=== PATIENT | female | born 1960 | race Caucasian/White ===

== ENCOUNTER 2018-06-22 08:36 | Outpatient (REF) | payer BC, SELFPAY ==
[2018-06-22 13:42] LABS: Anion Gap 9.9 mmol/L (3-11); BUN 18 mg/dL (7-18); CO2 29.1 mmol/L (21.0-32.0); CREATININE 0.59 mg/dL (0.55-1.02); Calcium 8.9 mg/dL (8.5-10.1); Chloride 102 mmol/L (98-107); Cholesterol 225 mg/dL (50-200); Glucose 92 mg/dL (70-100); HDL Cholesterol 53 mg/dL (40-60); LDL CHOLESTEROL 143 mg/dL (<100); Potassium 3.4 mmol/L (3.5-5.1); Sodium 141 mmol/L (136-145); Triglyceride 201 mg/dL (30-150)
== END 2018-06-22 08:56 ==
LOC: NCHCN 08:36
PROVIDERS: PCP Nurse Practitioner; Visit Provider Nurse Practitioner
DX: Z00.00 Encounter for general adult medical examination without abnormal findings (principal); I10 Essential (primary) hypertension; Z13.89 Encounter for screening for other disorder
CPT/HCPCS: 80048; 80061; 83721

== ENCOUNTER 2018-11-16 17:25 | Outpatient (REF) | payer BC, SELFPAY ==
[2018-11-16 21:35] LABS: Anion Gap 8.9 mmol/L (3-11); BUN 21 mg/dL (7-18); CO2 29.1 mmol/L (21.0-32.0); Calcium 8.8 mg/dL (8.5-10.1); Chloride 102 mmol/L (98-107); Glucose 93 mg/dL (70-100); Potassium 3.5 mmol/L (3.5-5.1); Sodium 140 mmol/L (136-145)
== END 2018-11-16 17:45 ==
LOC: NCHCN 17:25
PROVIDERS: PCP Nurse Practitioner; Visit Provider Nurse Practitioner
DX: E87.6 Hypokalemia (principal); I10 Essential (primary) hypertension
CPT/HCPCS: 80048

== ENCOUNTER 2019-02-01 13:11 | Day surgery (SDC) | payer BC, SELFPAY ==
--- NOTE | 2019-02-01 07:07 | COLE_ITS ---
Date of service: 02/01/19 Time of Service: 15:55 Colonoscopy Report Date of procedure: 02/01/19 Pre-op diagnosis general: Colon Cancer screening Post-op diagnosis procedure note: same Procedure: Colonoscopy Surgeon: Dasha Alcazar Anesthesia proc note operative: other (General/ ASA 2/Cameron Winn, PRINCE) Estimated blood loss (mL): 0 Pathology: none sent Complications: None Disposition: no change Indications: Mrs. Olson is a pleasant 58 year old female seen in the office for a screening colonoscopy. Risks, benefits and complications have been reviewed. Complications include but are not limited to bleeding, pain, per foration, missed small lesion/polyp, sore throat, aspiration and adverse reaction to the medications. Questions were entertained and answered to their satisfaction and they wished to proceed. No guarantees were given or implied. Prep: Miralax/Dulcolax Procedure Start Time: 15:55 Procedure End Time: 16:19 Retraction Time: 15 Findings: Normal colon Procedure Description: After informed consent was obtained the patient was taken to the procedure room and placed in a left decubitous position. Monitors were applied and a time out was done. The patients name, date of , procedure, allergies to medications and metal in their body was reviewed. The patient was then sedated. Once sedated and comfortable a rectal exam was done. External exam was normal. Internal exam revealed a normal sphincter tone and no palpable masses. The scope was then introduced and retro-flexed. No internal hemorrhoids were identified. The scope was then advanced to the cecum without difficulty. The TI and appendiceal orifice were identified. The prep was adequate. The scope was then slowly retracted over 15 minutes back into the rectum. There were no polyps, no diverticula. The scope was removed and the patient was woken up and taken back to Same day surgery in stable condition. The patient tolerated the procedure well and there were no immediate complications. Follow up: The patient should follow up in 10 years unless they develop changes in bowel habits or other new gastrointestinal complaints.
--- NOTE | 2019-02-01 07:07 | W.PM.DSUDISC ---
Discharge Plan Disposition Patient Disposition: HOME Condition: Good Discharge Details Reason For Visit: Colon Cancer Screening Attending Provider: Dasha Alcazar Primary Care Provider: Zonia Angeles Home Meds and New Rx's Prescriptions: Continued lisinopril 10 mg tablet 10 mg PO DAILY RF: 0 Discontinued polyethylene glycol 3350 17 gram/dose powder 238 g PO ONCE Qty: 238 RF: 0 bisacodyl [Dulcolax (bisacodyl)] 5 mg tablet,delayed release (DR/EC) 5 mg PO ONCE Qty: 4 RF: 0 Discharge Instructions Instructions: Colonoscopy (DC) Additional Instructions: Findings: normal Follow up: 10 years Please call if you develop: fevers >101.5 Nausea or Vomiting Abdominal pain that is not transient DAY SURGERY UNIT POST COLONOSCOPY INSTRUCTIONS 1. Because there will be medication in your system for the next 24 hours, you may feel a little sleepy. Your coordination will be affected. Therefore: a. Do not drive or operate dangerous equipment for 24 hours. b. Do not drink alcohol beverages for 24 hours (not even beer). c. Plan to go home and rest for the day. 2. Generally there are no restrictions on your activity after a day or so has gone by, but you may feel a bit fatigued for a few days. 3 After you arrive home you may have a light meal and return to a normal diet as you can tolerate it without feeling sick to your stomach. 4. After surgery, you may feel pain or discomfort. This should be only transient, but if it persists please contact your doctor. 5. If there are any questions regarding the findings of your procedure, please feel free to contact your doctor. 6. If you are unable to contact your doctor with a problem, contact the hospital at [phone]. 7. Continue all your regular medications unless directed otherwise. I understand the above instructions and have no questions. Signature of Patient or Responsible Adult Escort Date/Time Name of Responsible Adult Escort Signature of Nurse Date/Time Activity:: Activity as Tolerated Diet:: As Tolerated Discharge Orders Discharge Orders: Discharge Order (Routine); Ordered 02/01/19 Ordered By: Dasha Alcazar DS: Diagnosis Discharge Diagnosis (1) S/P colonoscopy: Status: Acute
[2019-02-01 13:34] VITALS: BP 176/99; PULSE 100; RESP 16; TEMP 37; O2SAT 99
[2019-02-01] MEDS: Lactated Ringers 1,000 ML 80 ML IV (14:00)
[2019-02-01 16:45] VITALS: BP 119/69; PULSE 76; RESP 16; TEMP 36; O2SAT 97
== END 2019-02-01 17:25 | disposition home or self-care (01) ==
LOC: SUR 13:12
PROVIDERS: PCP Nurse Practitioner; Visit Provider Surgery
PROC: 0DJD8ZZ Inspection of Lower Intestinal Tract, Via Natural or Artificial Opening Endoscopic (ICD-10-PCS; CPT 45378; principal; 2019-02-01 14:30)
DX: Z12.11 Encounter for screening for malignant neoplasm of colon (principal); I10 Essential (primary) hypertension
CPT/HCPCS: 45378

== ENCOUNTER 2019-05-11 15:33 | Outpatient (REF) | payer BC, SELFPAY | END 2019-05-11 15:53 | LOC: NCHCN 15:33 | PROVIDERS: PCP Internal Medicine; Visit Provider Nurse Practitioner Family | DX: R35.0 Frequency of micturition (principal); R21 Rash and other nonspecific skin eruption | CPT/HCPCS: 87077; 87086; 87186 ==

== ENCOUNTER 2020-02-22 20:11 | Outpatient (REF) | payer BC, SELFPAY ==
--- NOTE | 2020-02-22 16:30 | PAPFT_PTH ---
PATIENT: Nhi Olson LOC: [facility]#:[id number] AGE/SX: 59/F ROOM: RE02/22/[address]: Debbie White : 1960 BED: DIS: 02/22/2020 SPEC #: [id number] RECD: 02/23/20 12:47 STATUS: ELLEN REQ #: [id number] LUANN: 02/22/20 16:[address]: Debbie White DEPT: [facility] Cytology RECD BY: Analy Witt ENTERED: 02/23/20 12:47 SP TYPE: PAPFT OTHR DR: Robert Pritchard Tissues: 1 - CX/ENDOCX FOR PAP SMEARS Procedures: PAP THIN PREP/[facility] Screening HPV DNA PROBE Comments: [id number]
[2020-02-22 21:38] LABS: ALT 21 U/L (14-59); AST 18 U/L (15-37); Albumin 4.5 g/dL (3.4-5.0); Alkaline Phosphatase 71 U/L (46-116); Anion Gap 8.9 mmol/L (3-11); BUN 20 mg/dL (7-18); Bilirubin, Total 0.3 mg/dL (0.2-1.0); CO2 29.1 mmol/L (21.0-32.0); CREATININE 0.72 mg/dL (0.55-1.02); Chloride 102 mmol/L (98-107); Glucose 94 mg/dL (74-106); Potassium 3.6 mmol/L (3.5-5.1); Sodium 140 mmol/L (136-145); Total Protein 7.4 g/dL (6.4-8.2)
[2020-02-22 21:54] LABS: Calculated LDL 141 mg/dL (<100); Cholesterol 244 mg/dL (<200); HDL Cholesterol 44 mg/dL (40-60); Triglyceride 296 mg/dL (<150)
[2020-02-24 10:03] LABS: HIV-1/2 Ag & Ab Screen Negative (Negative)
== END 2020-02-22 20:31 ==
LOC: NCHCN 20:11
PROVIDERS: PCP Internal Medicine; Visit Provider Nurse Practitioner Family
DX: Z00.00 Encounter for general adult medical examination without abnormal findings (principal); I10 Essential (primary) hypertension; E78.5 Hyperlipidemia, unspecified; R31.9 Hematuria, unspecified; F41.9 Anxiety disorder, unspecified; K30 Functional dyspepsia; Z11.4 Encounter for screening for human immunodeficiency virus [HIV]; Z12.4 Encounter for screening for malignant neoplasm of cervix; Z01.419 Encounter for gynecological examination (general) (routine) without abnormal findings; Z11.51 Encounter for screening for human papillomavirus (HPV)
CPT/HCPCS: 80053; 80061; 87389; 88142; 87624

== ENCOUNTER 2020-05-05 16:34 | Outpatient (REF) | payer BC, SELFPAY ==
[2020-05-05 21:45] LABS: ALT 21 U/L (14-59); AST 16 U/L (15-37); Alkaline Phosphatase 62 U/L (46-116); Anion Gap 9.3 mmol/L (3-11); BUN 22 mg/dL (7-18); Bilirubin, Total 0.4 mg/dL (0.2-1.0); CO2 26.7 mmol/L (21.0-32.0); CREATININE 0.74 mg/dL (0.55-1.02); Calcium 8.9 mg/dL (8.5-10.1); Chloride 103 mmol/L (98-107); Glucose 92 mg/dL (74-106); Potassium 3.5 mmol/L (3.5-5.1); Sodium 139 mmol/L (136-145); Total Protein 6.7 g/dL (6.4-8.2)
[2020-05-05 22:12] LABS: Calculated LDL 62 mg/dL (<100); Cholesterol 150 mg/dL (<200); HDL Cholesterol 56 mg/dL (40-60); Triglyceride 161 mg/dL (<150)
== END 2020-05-05 16:54 ==
LOC: NCHCN 16:34
PROVIDERS: PCP Internal Medicine; Visit Provider Nurse Practitioner Family
DX: Z00.00 Encounter for general adult medical examination without abnormal findings (principal); I10 Essential (primary) hypertension; E78.5 Hyperlipidemia, unspecified
CPT/HCPCS: 80053; 80061

== ENCOUNTER 2020-06-06 15:05 | Outpatient (REF) | payer BC, SELFPAY ==
[2020-06-10 04:29] LABS: Patient Race White; SARS-CoV-2 RNA Undetected (Undetected); SARS-CoV-2 Specimen Source Nasal
== END 2020-06-06 15:25 ==
LOC: NCHCN 15:05
PROVIDERS: PCP Internal Medicine; Visit Provider Nurse Practitioner Family
DX: Z20.828 Contact with and (suspected) exposure to other viral communicable diseases (principal)
CPT/HCPCS: U0003

== ENCOUNTER 2020-08-28 20:32 | Outpatient (REF) | payer BC, SELFPAY | END 2020-08-28 20:52 | LOC: NCHCN 20:32 | PROVIDERS: PCP Internal Medicine; Visit Provider Family Medicine | DX: R39.15 Urgency of urination (principal) | CPT/HCPCS: 87077; 87086; 87186 ==

== ENCOUNTER 2020-11-28 01:31 | Outpatient (CLI) | payer BC, SELFPAY ==
--- NOTE | 2020-11-28 | DI.RAD_ITS ---
EXAM: XR HIP PELVIS ADULT BL CLINICAL HISTORY: BILAT HIP PAIN,M25.551 TECHNIQUE: COMPARISON: No exams were available for comparison FINDINGS: Three views were obtained. There is mild narrowing of the cartilaginous joint spaces of both hips. There are moderate marginal osteophytes of the acetabula and femoral heads bilaterally. Contour of f emoral neck bilaterally raises the possibility of femoroacetabular impingement. No other bony or soft tissue abnormality seen. IMPRESSION: Bilateral hip degenerative changes, moderate, question of femoroacetabular impingement bilaterally. RADIATION DOSE DELIVERED: Total DLP
== END 2020-11-28 01:51 ==
PROVIDERS: PCP Internal Medicine; Visit Provider Nurse Practitioner Family
DX: M25.551 Pain in right hip (principal); M25.552 Pain in left hip; M16.0 Bilateral primary osteoarthritis of hip
CPT/HCPCS: 73521

== ENCOUNTER 2020-12-22 16:05 | Outpatient (REF) | payer BC, SELFPAY | END 2020-12-22 16:06 | disposition home or self-care (01) | LOC: NCHCN 16:05 | PROVIDERS: PCP Internal Medicine; Visit Provider Nurse Practitioner Family | DX: R39.15 Urgency of urination (principal) | CPT/HCPCS: 87077; 87086; 87186 ==

== ENCOUNTER 2020-12-29 18:19 | Outpatient (REF) | payer BC, SELFPAY | END 2020-12-29 18:20 | disposition home or self-care (01) | LOC: NCHCN 18:19 | PROVIDERS: PCP Internal Medicine; Visit Provider Physician Assistant Medical | DX: R30.0 Dysuria (principal) | CPT/HCPCS: 87077; 87086; 87186 ==

== ENCOUNTER 2021-01-10 10:13 | Emergency (ER) | payer BC, SELFPAY ==
[2021-01-10 10:18] VITALS: BP 174/100; PULSE 100; RESP 18; TEMP 37.3; O2SAT 98
--- NOTE | 2021-01-10 10:29 | ED.GENADUL_ITS ---
Discharge Plan Disposition Patient Disposition: HOME Condition: Stable Discharge Details Clinical Impression: Epistaxis Primary Care Provider: Robert Pritchard ED Provider: Stephen Yeung Home Meds and New Rx's Prescriptions: Continued lisinopril 10 mg tablet 10 mg PO DAILY RF: 0 Discharge Instructions Instructions: Nosebleed (ED) Additional Instructions: You can use the nasal spray up to three times a day and do not use it more than 3 days if worsening bleeding or you are unable to get the bleeding to stop with 15 minutes of pressure return to the emergency department Medical Decision Making 60 yo female with hx of htn on lisinopril and not on any blood thinners comes in with chief complaint of right sided nose bleeds. She states she gets frequent right sided nosebleeds but normally at home. 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 She was able to stop it with some packing at the school but then this was pulled and removed a clot and it continued to bleed. She arrives with trickling of blood out the right nare, no visible nasal polyps, anterior nare is hyperemic, suspect anterior nose bleed, will have her hold pressure with nasal clamp and reassess. pt still had oozing after afrin and pressure, discussed rhino rocket and she initially agreed to have this done but when I brought equipment in she would like to try afrin and pressure again, this was done and nasal clamp reapplied, will reevaluate. nasal clamp removed and no recurrent bleeding, she does not want to have a rhino rocket at present. will reevaluate after she has some time with no clamp on the nose. patient has no recurrent bleeding, remains stable. Given no recurrent bleeding will d/c with afrin and return precautions given Differential Diagnosis Differential Diagnosis: anterior vs posterior epistaxis HPI General Mode of arrival: ambulatory . Date/Time Provider Initiated Documentation: 01/10/21 10:14 . Limitations to Documentation: no limitations . Information obtained by: patient . History of Present Illness 60 year old F presents to the emergency department with the chief complaint of nosebleed, described as moderate, Patient reports no radiation. Patient started experiencing this hour(s) (3) and it has been constant. No relieving factors improve symptom(s), No exacerbating factors reported . Patient notes no other symptoms.. Related Data Home Medications Medication Instructions Recorded Confirmed lisinopril 10 mg tablet 10 mg PO DAILY 01/18/19 01/10/21 Allergies Allergy/AdvReac Type Severity Reaction Status Date / Time Sulfa (Sulfonamide Allergy Severe Verified 02/01/19 13:28 Antibiotics) acetaminophen [From Vicodin] Allergy Unknown Verified 01/28/19 16:10 hydrocodone [From Vicodin] Allergy Unknown Verified 02/01/19 13:27 General Stated Complaint: Epistaxis JABIER: 3 Review of Systems All systems reviewed & are unremarkable except as noted in HPI and below Constitutional Constitutional: Denies chills, Denies fever(s) and Denies weakness Cardiovascular Cardiovascular: Denies chest pain and Denies dyspnea Respiratory Respiratory: Denies cough and Denies dyspnea Gastrointestinal Gastrointestinal: Denies abdominal pain, Denies nausea and Denies vomiting Musculoskeletal Musculoskeletal: Denies joint swelling Neurologic Neurologic: Denies weakness [facility] Medical History (Updated 01/10/21 @ 11:49 by Stephen Yeung MD) Cyst mid back History of kidney stones HTN (hypertension) Hx of fracture of wrist Skin lesion left religious Surgical History (Updated 02/01/19 @ 13:31 by Janett Johnson) History of lithotripsy Hx of cystoscopy Hx of tonsillectomy S/P colonoscopy (~02/01/19) Social History (Updated 01/22/19 @ 10:33 by DESIRAE Blood) Smoking/Tobacco Use Status: Never Smoking risk assessment performed?: Yes Alcohol Intake: current Alcohol Intake frequency: a few times a month Alcohol type: beer, hard liquor and other Substance use type: does not use Details: alcohol: 01/21/2019 Do you feel safe at home: Yes Do you feel safe in your relationship?: Yes Exam Const General: no acute distress Orientation: alert [facility] Head: normal to inspection Ears: external ears normal Mouth: moist mucous membranes Eyes General: appearance normal, both eyes and all related structures Neck Neck: normal visual inspection Resp Effort & Inspection: normal respiratory effort and able to speak in complete sentences Cardio Rate: regular rate Skin General skin exam: no rashes or lesions noted Neuro General: patient alert and patient oriented x3 Extrem General: normal to inspection Psych Mental Status: mental status grossly normal Course Vital Signs Vital signs: Vital Signs Temperature 37.3 C 01/10/21 10:18 Pulse 100 H 01/10/21 10:18 Respiratory Rate 18 01/10/21 10:18 Blood Pressure 174/100 H 01/10/21 10:18 Pulse Oximetry 98 01/10/21 10:18 Temperature 37.3 C 01/10/21 10:18 Temperature Source Temporal Artery Scan 01/10/21 10:18 Pulse 100 H 01/10/21 10:18 Respiratory Rate 18 01/10/21 10:18 Respiratory Effort Non-Labored 01/10/21 10:21 Blood Pressure 174/100 H 01/10/21 10:18 Blood Pressure Position Sitting 01/10/21 10:18 Pulse Oximetry 98 01/10/21 10:18 Oxygen Delivery Method Room Air 01/10/21 10:18 Oxygen Flow Rate 0 01/10/21 10:18 Pain Level 0 01/10/21 10:18
[2021-01-10] MEDS: Oxymetazolone 0.05% SPRAY 15 ML BTL NS (10:31)
[2021-01-10 11:53] VITALS: BP 163/88
[2021-01-10 13:07] VITALS: BP 163/88; PULSE 100; RESP 18; TEMP 37.3; O2SAT 98
== END 2021-01-10 12:24 | disposition home or self-care (01) ==
PROVIDERS: Emergency Provider Emergency Medicine; PCP Internal Medicine
DX: R04.0 Epistaxis (principal)
CPT/HCPCS: 99282

== ENCOUNTER 2021-01-26 12:14 | Outpatient (REF) | payer BC, SELFPAY | END 2021-01-26 12:15 | disposition home or self-care (01) | LOC: NCHCN 12:14 | PROVIDERS: PCP Internal Medicine; Visit Provider Family Medicine | DX: N39.0 Urinary tract infection, site not specified (principal) | CPT/HCPCS: 87077; 87086; 87186 ==

== ENCOUNTER 2021-03-29 14:57 | Outpatient (REF) | payer BC, SELFPAY ==
[2021-03-29 15:58] LABS: HCT 37.6 % (36.0-46.0); RDW 11.7 % (11.7-14.6)
[2021-03-29 16:00] LABS: HGB 12.6 g/dL (11.2-15.7); MCH 29.9 pg (27.0-33.0); MCHC 33.5 % (32.0-36.0); MCV 89.3 fL (80-95); MPV 12.5 fL (8.0-11.0); RBC 4.21 10^6/uL (3.93-5.22); RDW-SD 37.2 fL
[2021-03-29 16:06] LABS: Anion Gap 10.5 mmol/L (3-11); BUN 21 mg/dL (7-18); CO2 28.5 mmol/L (21.0-32.0); CREATININE 0.7 mg/dL (0.55-1.02); Calcium 8.6 mg/dL (8.5-10.1); Calculated LDL 126 mg/dL (<100); Chloride 106 mmol/L (98-107); Cholesterol 220 mg/dL (<200); Glucose 110 mg/dL (74-106); HDL Cholesterol 46 mg/dL (40-60); Potassium 3.8 mmol/L (3.5-5.1); Sodium 145 mmol/L (136-145); Triglyceride 242 mg/dL (<150)
[2021-03-29 16:51] LABS: Bilirubin Negative (Negative); Blood Large (Negative); Clarity Clear (Clear); Glucose Negative (Negative); Ketones Negative (Negative); Leukocyte Esterase Trace (Negative); Nitrite Negative (Negative); Urobilinogen 0.2 EU/dL (Up TO 0.2)
[2021-03-29 17:28] LABS: Platelet Count 38 10^3/uL (130-400)
[2021-03-29 17:32] LABS: Bacteria Negative HPF (Negative); C & S Indicated? Yes; Casts Negative LPF (Negative); Crystals Moderate Amorphous HPF (Negative); Epithelial Cells Negative HPF (Negative); Mucus Negative (Negative); Other Cells Negative (Negative); WBC Negative HPF (0-5)
== END 2021-03-29 14:58 | disposition home or self-care (01) ==
LOC: NCHCN 14:57
PROVIDERS: PCP Internal Medicine; Visit Provider Nurse Practitioner Family
DX: I10 Essential (primary) hypertension (principal); R23.2 Flushing; R31.9 Hematuria, unspecified; E78.5 Hyperlipidemia, unspecified
CPT/HCPCS: 80048; 80061; 85027; 81003; 81015; 87086

== ENCOUNTER 2021-05-04 20:40 | Outpatient (REF) | payer BC, SELFPAY ==
[2021-05-06 15:39] LABS: COVID-19 RT-PCR UVMMC Result Negative (Negative)
== END 2021-05-04 20:41 | disposition home or self-care (01) ==
LOC: LBN 20:40
PROVIDERS: PCP Internal Medicine; Visit Provider Physician Assistant Medical
DX: Z20.822 Contact with and (suspected) exposure to COVID-19 (principal); J06.9 Acute upper respiratory infection, unspecified
CPT/HCPCS: U0003

== ENCOUNTER 2021-06-13 00:41 | Outpatient (CLI) | payer BC, SELFPAY ==
--- NOTE | 2021-06-13 17:30 | DI.DEXA_ITS ---
Exam(s) XR DEXA BONE DENSITY W/WO SMITHA EXAM: XR DEXA BONE DENSITY W/WO SMITHA CLINICAL HISTORY: DISORDER OF BONE DENSITY AND STRUCTURE M85.88 TECHNIQUE: Routine DEXA evaluation of the lumbar spine, hip, or forearm. COMPARISON: CR XR HIP PELVIS ADULT BL from 11/28/2020 FINDINGS: Performed on a Hologic unit. Lateral image: No compression fracture evident. Lumbar Spine total T-score: -1.9 Hip total T-score:-2.2 Independent reading at the level of the femoral neck yields at T-score of -1.5. Forearm total T-score: -2.9 IMPRESSION: Bone mineral density measures in the osteopenia-osteoporosis range. Fracture risk is moderate-high. Note: Any spine fracture indicates 5x risk for subsequent spine fracture and 2x risk for subsequent h ip fracture. World Health Organization criteria for BMD interpretation classify patients: Normal...... T- Score at or above -1.0 Osteopenic... T- Score between -1.0 and -2.5 Osteoporosis... T-Score at or below -2.5
== END 2021-06-13 01:01 ==
PROVIDERS: PCP Internal Medicine; Visit Provider Nurse Practitioner Family
DX: M85.89 Other specified disorders of bone density and structure, multiple sites (principal); M81.0 Age-related osteoporosis without current pathological fracture
CPT/HCPCS: 77080

== ENCOUNTER 2021-07-12 20:03 | Outpatient (REF) | payer BC, SELFPAY ==
[2021-07-12 22:35] LABS: HCT 36.7 % (36.0-46.0); HGB 12.6 g/dL (11.2-15.7); MCH 29.4 pg (27.0-33.0); MCHC 34.3 % (32.0-36.0); MCV 85.7 fL (80-95); RBC 4.28 10^6/uL (3.93-5.22); RDW 11.7 % (11.7-14.6); RDW-SD 36.2 fL; WBC 5.77 10^3/uL (4.4-10.8)
[2021-07-12 23:35] LABS: Platelet Count 40 10^3/uL (130-400)
== END 2021-07-12 20:04 | disposition home or self-care (01) ==
LOC: NCHCN 20:03
PROVIDERS: PCP Internal Medicine; Visit Provider Nurse Practitioner Family
DX: D69.6 Thrombocytopenia, unspecified (principal)
CPT/HCPCS: 85027

== ENCOUNTER 2021-08-08 18:22 | Outpatient (REF) | payer BC, SELFPAY | END 2021-08-08 18:23 | disposition home or self-care (01) | LOC: NCHCN 18:22 | PROVIDERS: PCP Internal Medicine; Visit Provider Family Medicine | DX: N39.0 Urinary tract infection, site not specified (principal) | CPT/HCPCS: 87077; 87086; 87186 ==

== ENCOUNTER 2021-09-20 02:37 | Outpatient (CLI) | payer BC, SELFPAY | END 2021-09-20 02:38 | disposition home or self-care (01) | LOC: LBO 02:38 | PROVIDERS: PCP Internal Medicine; Visit Provider Internal Medicine Hematology & Oncology ==

== ENCOUNTER 2022-06-07 15:03 | Outpatient (REF) | payer BC, SELFPAY ==
[2022-06-07 15:45] LABS: HCT 39.1 % (36.0-46.0); HGB 13.3 g/dL (11.2-15.7); MCV 88 fL (80-95); MPV 12.4 fL (8.0-11.0); RBC 4.44 10^6/uL (3.93-5.22); RDW 11.6 % (11.7-14.6); RDW-SD 36.9 fL; WBC 5.82 10^3/uL (4.4-10.8)
[2022-06-07 16:10] LABS: Platelet Count 73 10^3/uL (130-400)
== END 2022-06-07 15:04 | disposition home or self-care (01) ==
LOC: NCHCN 15:03
PROVIDERS: PCP Internal Medicine; Visit Provider Nurse Practitioner Family
DX: D69.6 Thrombocytopenia, unspecified (principal)
CPT/HCPCS: 85027

== ENCOUNTER 2022-09-03 16:42 | Outpatient (REF) | payer BC, SELFPAY ==
[2022-09-03 21:13] LABS: HCT 39.3 % (36.0-46.0); HGB 13.1 g/dL (11.2-15.7); MCHC 33.3 % (32.0-36.0); MCV 87 fL (80-95); MPV 11.1 fL (8.0-11.0); Platelet Count 220 10^3/uL (130-400); RBC 4.51 10^6/uL (3.93-5.22); RDW 13.3 % (11.7-14.6)
== END 2022-09-03 16:43 | disposition home or self-care (01) ==
LOC: NCHCN 16:42
PROVIDERS: PCP Internal Medicine; Visit Provider Nurse Practitioner Family
DX: D69.3 Immune thrombocytopenic purpura (principal)
CPT/HCPCS: 85027

== ENCOUNTER 2022-10-08 12:38 | Outpatient (REF) | payer BC, SELFPAY | END 2022-10-08 12:39 | disposition home or self-care (01) | LOC: NCHCN 12:38 | PROVIDERS: PCP Internal Medicine; Visit Provider Nurse Practitioner Family | DX: N39.0 Urinary tract infection, site not specified (principal) | CPT/HCPCS: 87086 ==

== ENCOUNTER 2023-01-23 18:23 | Outpatient (REF) | payer BC, SELFPAY | END 2023-01-23 18:24 | disposition home or self-care (01) | LOC: NCHCN 18:23 | PROVIDERS: PCP Internal Medicine; Visit Provider Family Medicine | DX: N89.8 Other specified noninflammatory disorders of vagina (principal) | CPT/HCPCS: 87480; 87510; 87660 ==

== ENCOUNTER 2023-02-06 13:52 | Outpatient (REF) | payer BC, SELFPAY ==
[2023-02-06 21:18] LABS: HCT 37.9 % (36.0-46.0); HGB 13.3 g/dL (11.2-15.7); MCH 30.8 pg (27.0-33.0); MCHC 35.1 % (32.0-36.0); MCV 88 fL (80-95); MPV 12.7 fL (8.0-11.0); Platelet Count 72 10^3/uL (130-400); RBC 4.32 10^6/uL (3.93-5.22); RDW 11.5 % (11.7-14.6); RDW-SD 37.2 fL; WBC 5.01 10^3/uL (4.4-10.8)
[2023-02-06 22:22] LABS: ALT 19 U/L (14-59); AST 19 U/L (15-37); Albumin 4.3 g/dL (3.4-5.0); Alkaline Phosphatase 73 U/L (46-116); Anion Gap 6.2 mmol/L (3-11); BUN 16 mg/dL (7-18); Bilirubin, Total 0.4 mg/dL (0.2-1.0); CO2 31.8 mmol/L (21.0-32.0); CREATININE 0.6 mg/dL (0.55-1.02); Calcium 9.1 mg/dL (8.5-10.1); Calculated LDL 137 mg/dL (<100); Chloride 105 mmol/L (98-107); Cholesterol 239 mg/dL (<200); Estimated GFR 100.17 (mL/min/1.73m2); Glucose 87 mg/dL (74-106); HDL Cholesterol 52 mg/dL (40-60); Potassium 4.1 mmol/L (3.5-5.1); Sodium 143 mmol/L (136-145); Total Protein 7.3 g/dL (6.4-8.2); Triglyceride 253 mg/dL (<150)
[2023-02-08 09:19] LABS: HIV-1/2 Ag & Ab Screen Negative (Negative)
[2023-02-10 11:18] LABS: Hepatitis C Ab w Rflx HCV PCR Negative (Negative)
== END 2023-02-06 13:53 | disposition home or self-care (01) ==
LOC: NCHCN 13:52
PROVIDERS: PCP Internal Medicine; Visit Provider Nurse Practitioner Family
DX: Z00.00 Encounter for general adult medical examination without abnormal findings (principal)
CPT/HCPCS: 80053; 80061; 85027; 86803; 87389

== ENCOUNTER 2023-05-27 13:13 | Outpatient (REF) | payer BC, SELFPAY | END 2023-05-27 13:14 | disposition home or self-care (01) | LOC: LBN 13:13 | PROVIDERS: PCP Internal Medicine; Visit Provider Nurse Practitioner Family | DX: N30.01 Acute cystitis with hematuria (principal); B95.7 Other staphylococcus as the cause of diseases classified elsewhere | CPT/HCPCS: 87077; 87086; 87186 ==

== ENCOUNTER 2023-08-21 19:43 | Outpatient (REF) | payer BC, SELFPAY ==
[2023-08-21 22:03] LABS: Bacteria Few HPF (Negative); Crystals Few Amorphous HPF (Negative); Epithelial Cells Few HPF (Negative); Mucus Trace (Negative); Other Cells Rare Renal (Negative); RBC 0-2 HPF (0-2)
[2023-08-21 22:04] LABS: C & S Indicated? C&S Done As Ordered; Casts Negative LPF (Negative)
== END 2023-08-21 19:44 | disposition home or self-care (01) ==
LOC: LBN 19:43
PROVIDERS: PCP Internal Medicine; Visit Provider Physician Assistant Medical
DX: R30.0 Dysuria (principal); R82.998 Other abnormal findings in urine
CPT/HCPCS: 81015; 87086

== ENCOUNTER → 2023-09-25 03:16 | Outpatient (CLI) | payer BC, SELFPAY ==
--- NOTE | 2023-09-25 | DI.US_ITS ---
Exam(s) US CAROTID EXAM: US CAROTID CLINICAL HISTORY: Z82.49 FA HX ischemic heart disease,other disease of circulatory system. TECHNIQUE: Ultrasound carotids performed using grayscale, color-flow, and spectral Doppler imaging. COMPARISON: No exams were available for comparison FINDINGS: RIGHT CAROTID ARTERY: Plaque: None Velocity elevation: None. LEFT CAROTID ARTERY: Plaque: Minimal. Velocity elevation: None. VERTEBRAL ARTERIES: Antegrade flow. Measurements: R Bulb: 67.9cm/s PS / 20.8cm/s ED R CCA: 75cm/s PS / 22.5cm/s ED R ECA: 85.1cm/s PS / 7.5cm/s ED R ICA Prox: 90.8cm/s PS / 22cm/s ED R ICA Mid: 98.7cm/s PS / 36cm/s ED R ICA Distal: 111.5cm/s PS /31.2cm/s ED, tortuous distally. R Vert: 81.5cm/s PS / 24.7cm/s ED R SVR: 1.5 R DVR: 1.4 L Bulb: 58.7cm/s PS / 18.9cm/s ED L CCA: 76.6cm/s PS / 24cm/s ED L ECA: 92.6cm/s PS / 14.2cm/s ED L ICA Prox: 75cm/s PS / 26.9cm/s ED L ICA Mid: 94.7cm/s PS / 30.2cm/s ED L ICA Distal: 79cm/s PS / 28.8cm/s ED L Vert: 52.1cm/s PS / 12.3cm/s ED L SVR: 1.2 L DVR: 1.3 IMPRESSION: No evidence for hemodynamically significant carotid stenosis. Minimal plaque. Criteria for Carotid Stenosis: Normal: ICA PSV <125 cm/s no plaque or intimal thickening is visible. <50% stenosis: ICA PSV <125 cm/s and plaque or intimal thickening is visible. 50-69% stenosis: ICA PSV is 125-250 cm/s and plaque is visible. >70% stenosis to near occlusion: ICA PSV >250 cm/s with visible plaque and luminal narrowing. DATA REPOSITORY:
--- NOTE | 2023-09-25 | DI.RAD_ITS ---
Exam(s) XR HIP PELVIS ADULT BL EXAM: XR HIP PELVIS ADULT BL CLINICAL HISTORY: PAIN LEFT HIP M25.552 RIGHT SIDE FOR COMPARISON. TECHNIQUE: 2D digital imaging was performed. Three views. COMPARISON: CR XR HIP PELVIS ADULT BL from 11/28/2020 FINDINGS: BONES: No acute fracture is present. No bony destructive lesion is seen. JOINTS: No dislocation present. moderate to severe bilateral hip joint space narrowing with progress ion when compared with previous exam. Prominent spurring at the margins of the femoral heads. Degen erative changes of both superior acetabula. Degenerative changes at the right SI joint. No changes lower lumbar spine peer SOFT TISSUE: Normal. IMPRESSION: Moderate to severe degenerative changes of both hips. DATA REPOSITORY: RADIATION DOSE DELIVERED:
== END ==
PROVIDERS: PCP Internal Medicine; Visit Provider Nurse Practitioner Family
DX: M16.0 Bilateral primary osteoarthritis of hip (principal)
CPT/HCPCS: 73521; 93880

== ENCOUNTER 2023-10-16 17:10 | Emergency (ER) | payer BC, SELFPAY ==
[2023-10-16 17:13] VITALS: BP 211/93; PULSE 88; RESP 20; TEMP 36.8; O2SAT 99
--- NOTE | 2023-10-16 17:17 | W.ED.GENAD ---
Discharge Plan Disposition Patient Disposition: Home Condition: Stable Discharge Details Clinical Impression: Left ureteral stone Primary Care Provider: Brenda Naqvi ED Provider: Fransisco Timmons Home Meds and New Rx's Prescriptions: Continued lisinopril 10 mg tablet 40 mg PO DAILY propranolol 40 mg tablet 40 mg PO DAILY PRN (Reason: anxiety) rosuvastatin 5 mg tablet 5 mg PO DAILY multivitamin [Daily Multi-Vitamin] Tablet 1 tab PO DAILY tumeric Calcium 600 with Vitamin D3 600 mg-10 mcg (400 unit) tablet,chewable 1 tab PO DAILY Discharge Instructions Instructions: Ketorolac (By mouth), Ondansetron (By mouth), Tamsulosin (By mouth), Ureteral Stones (ED) Additional Instructions: You were seen in the emergency department for your left flank pain, there is a stone in the distal ureter just prior to entering the bladder on the left side. It is 4 mm there is a high likelihood that this will pass. We gave you significant amounts of IV fluids for hydration and started you on the medicine Flomax tonight. This medicine dilates your urinary system. We provided you with another tablet to use tomorrow night should do not experience relief by then. Please take 650 to 1000 mg of Tylenol every 6 hours, we did give you an IV dose here on arrival. I am also sending you home with 4 tablets of Toradol a powerful anti-inflammatory that you should not mix with your Excedrin. Take these also every 6 hours about chcf in between Tylenol doses. I have also sent you home with tablets of a nausea medicine called ondansetron to use as needed for nausea. These are dissolvable tablets to go under your tongue. Stay well-hydrated. Please return for any severely increasing symptoms despite treatment especially with fever, nausea, shaking, weakness. Referrals: [facility] [Provider Group] Brenda Naqvi [Primary Care Provider] - [facility] General Date/Time Provider Initiated Documentation: 10/16/23 17:16. HPI Narrative: 63 year-old female presents to ED today by POV/ambulating with a chief complaint of L flank pain, history of renal stones 12 years ago, with onset starting this morning. Quality described as L flank pain, denies urinary symptoms, denies fever, endorses mild nausea, no radiation to chest pain, shortness of breath, does endorse a minor fall about 4 weeks ago but no back pain since. Severity is described as 8/10. Palliating factors include 3 excedrin tablets this afternoon. Provoking factors include nothing specific. Events leading up to the incident/Associated Symptoms: Patient did have a recent strep infection on 09/27/23. Patient not anticoagulated. Related Data Home Medications Medication Instructions Recorded Confirmed lisinopril 10 mg tablet 40 mg PO DAILY 01/18/19 10/16/23 propranolol 40 mg tablet 40 mg PO DAILY PRN anxiety 01/31/21 10/16/23 rosuvastatin 5 mg tablet 5 mg PO DAILY 08/20/23 10/16/23 calcium carbonate 600 mg-vitamin 1 tab PO DAILY 10/16/23 10/16/23 D3 10 mcg (400 unit) chewable tablet (Calcium 600 with Vitamin D3) multivitamin (Daily Multi-Vitamin 1 tab PO DAILY 10/16/23 10/16/23 tablet) tumeric 10/16/23 Allergies Allergy/AdvReac Type Severity Reaction Status Date / Time Sulfa (Sulfonamide Allergy Severe Other (See Verified 10/16/23 17:16 Antibiotics) Comment) acetaminophen [From Vicodin] Allergy Unknown Other (See Verified 10/16/23 17:16 Comment) hydrocodone [From Vicodin] Allergy Unknown Other (See Verified 10/16/23 17:16 Comment) General Stated Complaint: FlankPain JABIER: 3 Review of Systems All systems reviewed & are unremarkable except as noted in HPI and below Exam Narrative Exam Narrative: GENERAL APPEARANCE: Well-nourished, non-toxic, awake and alert, atraumatic, no acute distress. SKIN: Warm, pink, dry, intact, without rashes/lesions/ulcerations. HEAD: Normocephalic, atraumatic, normal hair distribution for gender/age. EYES: Pupils PERRLA, EOMs intact without nystagmus, normal conjunctiva, no exudates on lids/lashes. ENT: Nares patent, no circumoral cyanosis, no facial swelling NECK: Supple, trachea midline, painless cervical ROM. LUNGS/CHEST: Lungs CTA bilaterally- no rhonchi/rales/wheezes diffusely, non-labored respirations, normal A/P diameter, symmetrical expansion, no chest wall deformity HEART (CV/PV): Regular rate and rhythm without murmur, no peripheral edema, no JVD. ABDOMEN: Soft, non-distended, no guarding, L CVA tenderness to percussion. MSK: Normal ROM, no swelling/deformity to bilateral UEs or LEs, moving all extremities without weakness, no cyanosis, spine midline without tenderness, normal curvature, no bony or paraspinal lumbar tenderness NEURO: Mental Status AAOx4 - alert to person, place, time, events No facial droop, no forehead involvement. Motor: No focal weakness - strength 5/5 in bilateral UEs and LEs, proximal and distal, symmetric. Sensory: sensation intact to light touch globally. Gait normal: patient ambulated without ataxia into ED room. PSYCH: euthymic, cooperative, pleasant, appropriate speech Course Vital Signs Vital signs: Vital Signs Temperature 36.8 C 10/16/23 17:13 Pulse 88 10/16/23 17:13 Respiratory Rate 20 10/16/23 17:13 Blood Pressure 211/93 H 10/16/23 17:13 Pulse Oximetry 99 10/16/23 17:13 Temperature 36.8 C 10/16/23 17:13 Temperature Source Temporal Artery Scan 10/16/23 17:13 Pulse 88 10/16/23 17:13 Respiratory Rate 20 10/16/23 17:13 Blood Pressure 211/93 H 10/16/23 17:13 Blood Pressure Position Sitting 10/16/23 17:13 Pulse Oximetry 99 10/16/23 17:13 Oxygen Delivery Method Room Air 10/16/23 17:13 Oxygen Flow Rate 0 10/16/23 17:13 Pain Level 8 10/16/23 17:13 Medical Decision Making This dictation utilizes [id number] dictation software and may contain unedited grammatical errors. 63 y/o F presents to ED today with a chief complaint of L flank pain developing today- history of renal stones 12 years ago, denies fever/chills, endorses mild nausea, ifeoma bony tenderness to lumbar back. Patient denies urinary symptoms or retention. Patients' medical history: Hematuria, urgency incontinence, urinary frequency, history of kidney stones, hypertension. 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 Pertinent exam findings / vital signs include left CVA tenderness, nontoxic vitals, benign cardiopulmonary exam, neuro intact. Differential / pathologies of concern include pyelonephritis, UTI, renal colic, infected kidney stone, lumbar back pain with radiculopathy. Diagnostic studies of: -CBC, CMP, CRP, lactate, lipase, procalcitonin, UA, CT renal wo Contrast. -CBC shows no leukocytosis, no anemia - chronically low PLT's - improved from priors -CMP shows mildly elevated BUN, normal SCr -UA withouh protein, gross blood, trace leuk esterase, 3-5 WBCs on micro- reflex to Cx - NO nitrites -Lactate neg, procalcitonin neg -Lipase WNL -CT Renal Stone Study shows 4mm calculus at L UVJ, severe L hydronephrosis Interventions of: -IV Fluids, IV Tylenol, IV Zofran. -Consulted with Urology as patient did have UA reflexed to culture - severe L hydronephrosis > trial of flomax, home meds for pain and aggressive hydration with strict return criteria. ED Course/Assessment/Plan: 63-year-old female presents with left flank pain with a history of renal stones 12 years ago, she was found to have 4 mm ureteral stone at the UVJ, her urine was sent for culture and I did page urology but they did not respond and with a high likelihood of the stone passing the patient was discharged home with trial of tamsulosin, recommending aggressive hydration given ondansetron for nausea as well as Toradol. Patient was comfortable with this disposition and strict return criteria for any worsening symptoms despite treatment, urinary retention or fever. Findings not consistent with overtly infected stone- there are signs of inflammation around the stone, but 4mm should pass, labs showed no signs of severe infection. Discussed strict return criteria with patient. Disposition of Left Ureteral Stone. Patient verbalized understanding of the plan and return to ED criteria and engaged in shared decision making. Medical Records Medical records reviewed: Yes I reviewed the patient's medical records. Imaging Data Radiologic Study: Attestation: I personally reviewed and interpreted this imaging study as follows: Imaging: CT Scan Radiologist's impression: Exam: CT Abdomen And Pelvis Without Contrast Exam date and time: 10/16/2023 18:56 Age: 63 years old Clinical indication: Abdominal pain; Left; Patient HX: L flank pain TECHNIQUE: Imaging protocol: Computed tomography of the abdomen and pelvis without contrast. Radiation optimization: All CT scans at this facility use at least one of these dose optimization techniques: automated exposure control; mA and/or kV adjustment per patient size (includes targeted exams where dose is matched to clinical indication); or iterative reconstruction. COMPARISON: CR XR HIP PELVIS ADULT BL 09/25/2023 15:54 FINDINGS: Liver: No hepatic masses on noncontrast imaging. Gallbladder and bile ducts: No calcified stones. No ductal dilation. Pancreas: No gross pathology in the pancreas on noncontrast imaging. Spleen: No splenomegaly or focal lesions. Adrenal glands: No mass. Kidneys and ureters: 4 mm calculus, distal left ureter and or ureteral vesicular junction. Severe left hydronephrosis. At the left UVJ and or distal ureter, there is a somewhat thickened appearance of the epithelium possibly extending into the left bladder base. Subcentimeter right nephrolithiasis. Mild right hydronephrosis without obstructing stones. Subcentimeter left nephrolithiasis. The left ureter is tortuous. Stomach and bowel: No gross pathology in the small bowel without IV contrast. Appendix: No evidence of appendicitis. Intraperitoneal space: No free air. No significant fluid collection. Vasculature: No abdominal aortic aneurysm. Lymph nodes: No significantly enlarged lymph nodes. Urinary bladder: The remainder of the urinary bladder appears slightly thick-walled and probably slightly trabeculated. Reproductive: Unremarkable as visualized. Bones/joints: Moderate chronic degenerative changes in the hips. Moderate lumbar spondylosis with degenerative grade 1 anterolisthesis L5 over S1. No acute fracture or subluxation. Soft tissues: No suspicious lesions. IMPRESSION: 1. 4 mm calculus, distal left ureter and or ureteral vesicular junction. Severe left hydronephrosis. 2. At the left UVJ and or distal ureter, there is a somewhat thickened appearance of the epithelium possibly extending into the left bladder base. Unclear if this is inflammatory, infectious or malignant, with follow-up warranted. 3. The remainder of the urinary bladder appears slightly thick-walled and probably slightly trabeculated. 4. Subcentimeter right nephrolithiasis. Mild right hydronephrosis without obstructing stones. 5. Subcentimeter left nephrolithiasis. 6. Incidental findings as described. Dictated and Authenticated by: Agustina Courtney MD. Ordering:ED Moody MD Lab Data Lab results reviewed: Yes I reviewed the patient's lab results. Labs: 10/16/23 17:28 Urine - Reflex from Ua Urine Culture - Pending Laboratory Tests Range/Units 10/16/23 10/16/23 17:28 18:00 WBC (4.4-10.8) 10^3/uL 10.74 RBC (3.93-5.22) 10^6/uL 4.44 Hgb (11.2-15.7) g/dL 13.3 Hct (36.0-46.0) % 38.1 MCV (80-95) fL 86 MCH (27.0-33.0) pg 30.0 MCHC (32.0-36.0) % 34.9 RDW (11.7-14.6) % 11.5 L Plt Count (130-400) 10^3/uL 102 L MPV (8.0-11.0) fL 10.7 Immature Gran % 0.4 Neutrophils % 83.4 Lymphocytes % 9.2 Monocytes % 6.2 Eosinophils % 0.3 Basophils % 0.5 Nucleated RBC % (0.0-0.3) % 0.0 Absolute Neutrophils (1.2-6.7) 10^3/uL 8.96 H Absolute Lymphocytes (1.2-3.4) 10^3/uL 0.99 L Absolute Monocytes (0.1-0.8) 10^3/uL 0.67 Absolute Eosinophils (0.0-0.7) 10^3/uL 0.03 Absolute Basophils (0.0-0.2) 10^3/uL 0.05 VBG Lactate (0.6-1.4) mmol/L 1.3 Sodium (136-145) mmol/L 140 Potassium (3.5-5.1) mmol/L 3.5 Chloride (98-107) mmol/L 101 Carbon Dioxide (21.0-32.0) mmol/L 27.8 Anion Gap (3-11) mmol/L 11.2 H BUN (7-18) mg/dL 24 H Creatinine (0.55-1.02) mg/dL 0.9 Est GFR (CKD-EPI 2020) (mL/min/1.73m2) 70.95 Glucose (74-106) mg/dL 139 H Calcium (8.5-10.1) mg/dL 9.4 Total Bilirubin (0.2-1.0) mg/dL 0.4 AST (15-37) U/L 20 ALT (14-59) U/L 24 Alkaline Phosphatase (46-116) U/L 76 C-Reactive Protein (<or=0.5) mg/dL < 0.50 Total Protein (6.4-8.2) g/dL 7.7 Albumin (3.4-5.0) g/dL 4.3 Lipase (16-77) U/L 36 Procalcitonin ng/mL < 0.1 Urine Color (Yellow) Yellow Urine Clarity (Clear) Clear Urine pH (5-8) 7.0 Ur Specific [place] (1.005-1.025) 1.020 Urine Protein (Neg-Trace) mg/dL Trace Urine Ketones (Negative) mg/dL Trace H Urine Blood (Negative) Moderate H Urine Nitrite (Negative) Negative Urine Bilirubin (Negative) Negative Urine Urobilinogen (Up to 0.2) mg/dL 0.2 Ur Leukocyte Esterase (Negative) Small H Urine RBC (0-2) HPF 10-20 H Urine WBC (0-5) HPF 3-5 Ur Epithelial Cells (Negative) HPF Rare Urine Crystals (Negative) HPF Moderate Amorphous Urine Bacteria (Negative) HPF Rare Urine Mucus (Negative) Trace Urine Other (Negative) Rare Renal Ur Culture Indicated? Yes Urine Glucose (Negative) mg/dL Negative Quality:SDOH Health Related Social Needs: No Data to Display PFSH All Active Problems (Updated 02/01/19 @ 13:31 by Janett Johnson) Left ureteral stone (Acute) Epistaxis (Acute) S/P colonoscopy (Acute ~02/01/19) Medical History (Updated 10/16/23 @ 20:23 by DESIRAE Samuels) Hematuria Anxiety Urgency of urination Basal cell carcinoma Dysuria Urinary frequency Hx of fracture of wrist History of kidney stones Skin lesion left church Cyst mid back HTN (hypertension) Surgical History (Updated 02/01/19 @ 13:31 by Janett Johnson) Hx of tonsillectomy Hx of cystoscopy History of lithotripsy Social History (Updated 01/22/19 @ 10:33 by DESIRAE Blood) Smoking/Tobacco Use Status: Never Smoking risk assessment performed?: Yes Alcohol Intake: current Alcohol Intake frequency: a few times a month Alcohol type: beer, hard liquor and other Substance use type: does not use Housing: house Do you feel safe at home: Yes Do you feel safe in your relationship?: Yes
--- NOTE | 2023-10-16 17:30 | DI.CT_ITS ---
Exam(s) CT RENAL COLIC WO EXAM: CT RENAL COLIC WO CLINICAL HISTORY: L flank pain. TECHNIQUE: Imaging Protocol: Axial computed tomography images with coronal and sagittal reformatted images were created and reviewed. COMPARISON: CT RENAL COLIC WO CONTRAST from 02/25/2011 FINDINGS: ABDOMEN: Lung Bases: Small hiatal hernia. Liver: Normal density. No measurable mass. Gallbladder and biliary tract: No radiodense calculus or biliary ductal dilation. Pancreas: Normal density, no abnormal calcifications or inflammatory process. Spleen: Normal. Kidneys: Normal size, contour and axis.There is a 6 mm stone at the left UVJ causing moderately sever e hydronephrosis. There is mild thickening of the wall in the distal ureter at the level of the ston e. There is bilateral nephrolithiasis. There is no evidence of right ureterolithiasis. No masses s een. Note is made of a retroaortic left renal vein. Adrenal glands: No mass is seen. Lymph nodes: Within normal limits. Abdominal Aorta: Abdominal portion non-dilated. Atherosclerotic calcification is present. PELVIS: Bladder:There is mild thickening of the wall of the urinary bladder. Bowel: There are few scattered diverticula in the colon but no evidence of acute diverticulitis. The re is no evidence of bowel obstruction or significant bowel wall thickening. No evidence of appendic itis. Peritoneal cavity: No ascites, collection or mesenteric inflammatory response. No free air. Reproductive organs: Unremarkable as visualized. Bones: Within normal limits. There are marked degenerative changes seen in the hips bilaterally, left greater than right. There is grade 1 anterolisthesis of L5 on S1. Soft Tissues: Within normal limits. IMPRESSION: 1. 6 mm left UVJ calculus causing moderately severe hydronephrosis. There is mild thickening of the adjacent distal ureter in this region. This may be secondary to the stone causing inflammation, infe ction. Neoplastic process can not be entirely excluded. 2. Bilateral nephrolithiasis. 3. Mild wall thickening in the urinary bladder. This may be due to underdistention. Cystitis, chron ic bladder outlet obstruction or neoplasm can not be entirely excluded. Follow-up as clinically appr opriate. RADIATION DOSE DELIVERED: Total DLP DATA REPOSITORY: All CT scans at this facility are submitted to the National Radiology Data Registry (NRDR) Dose Index Registry (DIR) with the [employer] (A[employer]). RADIATION OPTIMIZATION: All CT scans at this facility use at least one of these dose optimization te chniques: automated exposure control; mA and/or kV adjustment per patient size (includes targeted exa ms where dose is matched to clinical indication); or iterative reconstruction.
[2023-10-16 17:33] LABS: Bilirubin Negative (Negative); Blood Moderate (Negative); Clarity Clear (Clear); Glucose Negative (Negative); Ketones Trace mg/dL (Negative); Leukocyte Esterase Small (Negative); Nitrite Negative (Negative); Urobilinogen 0.2 mg/dL (Up to 0.2)
[2023-10-16 17:41] LABS: Bacteria Rare HPF (Negative); Crystals Moderate Amorphous HPF (Negative); Epithelial Cells Rare HPF (Negative); Mucus Trace (Negative); Other Cells Rare Renal (Negative)
[2023-10-16 17:42] LABS: C & S Indicated? Yes
[2023-10-16] MEDS: ACETAMINOPHEN 1,000 MG/100 ML BTL 400 MG IVPB (18:03)
[2023-10-16] MEDS: Ondansetron 4 MG/2 ML VIAL IVP (18:03)
[2023-10-16] MEDS: Normal Saline 1,000 ML 1000 ML IV (18:03)
[2023-10-16 18:04] LABS: Lactate 1.3 mmol/L (0.6-1.4)
[2023-10-16 18:06] LABS: Abs Immature Grans 0.04 10^3/uL (0.0-0.06); Absolute Basophil Count 0.05 10^3/uL (0.0-0.2); Absolute Eosinophil Count 0.03 10^3/uL (0.0-0.7); Absolute Lymphocyte Count 0.99 10^3/uL (1.2-3.4); Absolute Monocyte Count 0.67 10^3/uL (0.1-0.8); Absolute Neutrophil Count 8.96 10^3/uL (1.2-6.7); Basophils % 0.5; Eosinophils % 0.3; HCT 38.1 % (36.0-46.0); HGB 13.3 g/dL (11.2-15.7); Immature Grans % 0.4; Lymphocytes % 9.2; MCHC 34.9 % (32.0-36.0); MCV 86 fL (80-95); MPV 10.7 fL (8.0-11.0); Monocytes % 6.2; Neutrophils % 83.4; Platelet Count 102 10^3/uL (130-400); RBC 4.44 10^6/uL (3.93-5.22); RDW 11.5 % (11.7-14.6); RDW-SD 35.7 fL; WBC 10.74 10^3/uL (4.4-10.8)
[2023-10-16 18:26] LABS: ALT 24 U/L (14-59); AST 20 U/L (15-37); Albumin 4.3 g/dL (3.4-5.0); Alkaline Phosphatase 76 U/L (46-116); Anion Gap 11.2 mmol/L (3-11); BUN 24 mg/dL (7-18); Bilirubin, Total 0.4 mg/dL (0.2-1.0); CO2 27.8 mmol/L (21.0-32.0); CREATININE 0.9 mg/dL (0.55-1.02); Calcium 9.4 mg/dL (8.5-10.1); Chloride 101 mmol/L (98-107); Estimated GFR 70.95 (mL/min/1.73m2); Glucose 139 mg/dL (74-106); Lipase 36 U/L (16-77); Potassium 3.5 mmol/L (3.5-5.1); Sodium 140 mmol/L (136-145); Total Protein 7.7 g/dL (6.4-8.2)
[2023-10-16 18:28] LABS: C-Reactive Protein < 0.50 mg/dL (<or=0.5)
[2023-10-16 19:01] LABS: Procalcitonin < 0.1 ng/mL
--- NOTE | 2023-10-16 19:33 | DI.VRAD_ITS ---
PROCEDURE INFORMATION: Exam: CT Abdomen And Pelvis Without Contrast Exam date and time: 10/16/2023 18:56 Age: 63 years old Clinical indication: Abdominal pain; Left; Patient HX: L flank pain TECHNIQUE: Imaging protocol: Computed tomography of the abdomen and pelvis without contrast. Radiation optimization: All CT scans at this facility use at least one of these dose optimization techniques: automated exposure control; mA and/or kV adjustment per patient size (includes targeted exams where dose is matched to clinical indication); or iterative reconstruction. COMPARISON: CR XR HIP PELVIS ADULT BL 09/25/2023 15:54 FINDINGS: Liver: No hepatic masses on noncontrast imaging. Gallbladder and bile ducts: No calcified stones. No ductal dilation. Pancreas: No gross pathology in the pancreas on noncontrast imaging. Spleen: No splenomegaly or focal lesions. Adrenal glands: No mass. Kidneys and ureters: 4 mm calculus, distal left ureter and or ureteral vesicular junction. Severe left hydronephrosis. At the left UVJ and or distal ureter, there is a somewhat thickened appearance of the epithelium possibly extending into the left bladder base. Subcentimeter right nephrolithiasis. Mild right hydronephrosis without obstructing stones. Subcentimeter left nephrolithiasis. The left ureter is tortuous. Stomach and bowel: No gross pathology in the small bowel without IV contrast. Appendix: No evidence of appendicitis. Intraperitoneal space: No free air. No significant fluid collection. Vasculature: No abdominal aortic aneurysm. Lymph nodes: No significantly enlarged lymph nodes. Urinary bladder: The remainder of the urinary bladder appears slightly thick-walled and probably slightly trabeculated. Reproductive: Unremarkable as visualized. Bones/joints: Moderate chronic degenerative changes in the hips. Moderate lumbar spondylosis with degenerative grade 1 anterolisthesis L5 over S1. No acute fracture or subluxation. Soft tissues: No suspicious lesions. IMPRESSION: 1. 4 mm calculus, distal left ureter and or ureteral vesicular junction. Severe left hydronephrosis. 2. At the left UVJ and or distal ureter, there is a somewhat thickened appearance of the epithelium possibly extending into the left bladder base. Unclear if this is inflammatory, infectious or malignant, with follow-up warranted. 3. The remainder of the urinary bladder appears slightly thick-walled and probably slightly trabeculated. 4. Subcentimeter right nephrolithiasis. Mild right hydronephrosis without obstructing stones. 5. Subcentimeter left nephrolithiasis. 6. Incidental findings as described. Dictated and Authenticated by: Agustina Courtney MD. Ordering:ED Moody MD
[2023-10-16 20:45] VITALS: BP 138/79; PULSE 91; RESP 16; O2SAT 99
[2023-10-16] MEDS: Ketorolac 10 MG TAB PO (20:46)
[2023-10-16] MEDS: Ondansetron O.D.T. 4 MG TABEF, 3 TABS/BTL PO (20:47)
[2023-10-16] MEDS: Tamsulosin 0.4 MG CAPCR PO (20:48)
== END 2023-10-16 20:45 | disposition home or self-care (01) ==
PROVIDERS: Emergency Provider Physician Assistant; PCP Nurse Practitioner Family
DX: N13.2 Hydronephrosis with renal and ureteral calculous obstruction (principal); I10 Essential (primary) hypertension
CPT/HCPCS: 36415; 80053; 83690; 84145; 96361; 96374; 96375; 99284; 74176; 81003; 81015; 83605; 85025; 86140; 87086; J0131; J2405

== ENCOUNTER 2023-10-28 20:42 | Outpatient (REF) | payer BC, SELFPAY ==
[2023-11-03 12:14] LABS: Source: Kidney
== END 2023-10-28 20:43 | disposition home or self-care (01) ==
LOC: NCHCN 20:42
PROVIDERS: PCP Nurse Practitioner Family; Visit Provider Nurse Practitioner Family
DX: N20.0 Calculus of kidney (principal)
CPT/HCPCS: 82365

== ENCOUNTER 2023-12-29 05:31 | Outpatient (CLI) | payer BC, SELFPAY ==
[2023-12-29 16:06] LABS: HCT 36.5 % (36.0-46.0); HGB 12.7 g/dL (11.2-15.7); MCH 30.6 pg (27.0-33.0); MCHC 34.8 % (32.0-36.0); MCV 88 fL (80-95); MPV 10.6 fL (8.0-11.0); Platelet Count 130 10^3/uL (130-400); RBC 4.15 10^6/uL (3.93-5.22); RDW 11.8 % (11.7-14.6); WBC 6.18 10^3/uL (4.4-10.8)
[2023-12-29 16:27] LABS: Anion Gap 11.3 mmol/L (3-11); BUN 22 mg/dL (7-18); CO2 26.7 mmol/L (21.0-32.0); CREATININE 0.7 mg/dL (0.55-1.02); Calcium 8.8 mg/dL (8.5-10.1); Chloride 105 mmol/L (98-107); Estimated GFR 95.92 (mL/min/1.73m2); Glucose 93 mg/dL (74-106); Potassium 3.6 mmol/L (3.5-5.1); Sodium 143 mmol/L (136-145)
== END 2023-12-29 05:32 | disposition home or self-care (01) ==
LOC: LBO 05:31
PROVIDERS: PCP Nurse Practitioner Family; Visit Provider Student in an Organized Health Care Education/Training Program
DX: M16.12 Unilateral primary osteoarthritis, left hip (principal); Z01.818 Encounter for other preprocedural examination
CPT/HCPCS: 36415; 80048; 85027

== ENCOUNTER 2023-12-29 14:48 | Outpatient (CLI) | payer BC, SELFPAY ==
--- NOTE | 2023-12-29 14:45 | DI.RAD_ITS ---
Exam(s) XR PELVIS AP EXAM: XR PELVIS AP CLINICAL HISTORY: L TKR Planning. TECHNIQUE: 2D digital imaging was performed. Single AP view with template ball. COMPARISON: CR XR HIP PELVIS ADULT BL from 09/25/2023 FINDINGS: BONES: No acute fracture is present. No bony destructive lesion is seen. JOINTS: No dislocation present. Moderate to severe degenerative changes of both hips, left greater th an right, similar to prior exam. Prominent periarticular spurring. The SI joints and pubic symphysi s are unremarkable. SOFT TISSUE: Normal. IMPRESSION: Moderate to severe degenerative changes of both hips, left greater right. DATA REPOSITORY: RADIATION DOSE DELIVERED:
== END 2023-12-29 14:49 | disposition home or self-care (01) ==
LOC: DIORS 14:48
PROVIDERS: PCP Nurse Practitioner Family; Visit Provider Physician Assistant
DX: M16.12 Unilateral primary osteoarthritis, left hip (principal)
CPT/HCPCS: 72170

== ENCOUNTER 2024-01-14 06:05 | Day surgery (SDC) | payer BC, SELFPAY ==
[2024-01-14] VITALS (20 sets, daily range): BP systolic 100–195; BP diastolic 41–104; PULSE 52–91; RESP 9–20; TEMP 36.1–37.2; O2SAT 93–99; BMI 23.6
[2024-01-14] MEDS: Acetaminophen 500 MG TAB 1000 MG PO (06:40)
[2024-01-14] MEDS: Celecoxib 200 MG CAP 400 MG PO (06:40)
--- NOTE | 2024-01-14 06:54 | ANES.PREOP_ITS ---
General Info Date of Service Date Performed: 01/14/24 Height: 5 ft 3 in Weight: 60.5 kg Body Mass Index (BMI): 23.6 Surgical Procedure: Operation Date: 01/14/24 07:50 Proposed Procedure Side Surgeon p Hip Total Hip Anterior, Corail Short Neck Left Shaheen Lara MD Meds Allergies and Home Medications Allergies Allergy/AdvReac Type Severity Reaction Status Date / Time Sulfa (Sulfonamide Allergy Severe Other (See Verified 01/14/24 06:23 Antibiotics) Comment) acetaminophen [From Vicodin] Allergy Unknown Other (See Verified 01/14/24 06:23 Comment) hydrocodone [From Vicodin] Allergy Unknown Other (See Verified 01/14/24 06:23 Comment) Home Medication Medication Instructions Recorded lisinopril 10 mg tablet 40 mg PO DAILY 01/18/19 propranolol 40 mg tablet 40 mg PO DAILY PRN anxiety 01/31/21 rosuvastatin 5 mg tablet 5 mg PO DAILY 08/20/23 calcium carbonate 600 mg-vitamin 1 tab PO DAILY 10/16/23 D3 10 mcg (400 unit) chewable tablet (Calcium 600 with Vitamin D3) multivitamin (Daily Multi-Vitamin 1 tab PO DAILY 10/16/23 tablet) tumeric 10/16/23 Current Visit Medications: Current Medications Generic Name Dose Route Start Last Admin Trade Name Geronimoq PRN Reason Stop Dose Admin Acetaminophen 1,000 mg 01/14/24 06:00 01/14/24 06:40 Acetaminophen 500 Mg Tab PO 01/14/24 23:59 1,000 mg PREOP CLEMENTE Administration Celecoxib 400 mg 01/14/24 06:00 01/14/24 06:40 Celecoxib 200 Mg Cap PO 01/14/24 23:59 400 mg PREOP CLEMENTE Administration Ringer's Solution 1,000 mls @ 80 mls/hr 01/14/24 06:00 IV 01/14/24 23:59 INFUSION CLEMENTE Cefazolin Sodium/Dextrose 2 gm in 50 mls @ 100 mls/hr 01/14/24 06:00 Ancef Duplex IVPB 01/14/24 23:59 PREOP CLEMENTE Tranexamic Acid/Sodium Chloride 1,000 mg in 100 mls @ 600 mls/hr 01/14/24 06:00 IVPB 01/14/24 23:59 PREOP CLEMENTE IV Miscellaneous Supplies 1 each 01/14/24 06:00 Iv Access IV 01/14/24 23:59 DIRECTED CLEMENTE Sodium Chloride 0 ml 01/14/24 06:00 Normal Saline Flush 10 Ml Syr IV 01/14/24 23:59 PRN PRN Sodium Chloride 0 ml 01/14/24 06:00 Normal Saline 10 Ml Vial IJ 01/14/24 23:59 DIRECTED PRN Sterile Water 0 ml 01/14/24 06:00 Water,Injection,Sterile 10 Ml Vial IJ 01/14/24 23:59 DIRECTED PRN PFSH Active Problems Active Problems: Problem Status Onset Code Cystocele with uterine prolapse N81.4 Fielding-Walker grade 1 cystocele N81.10 Arthritis of right hip M16.11 Arthritis of left hip M16.12 Epistaxis R04.0 S/P colonoscopy ~02/01/19 Z98.890 Medical History Medical History Hematuria Anxiety Urgency of urination Basal cell carcinoma mohs surgery Dysuria Urinary frequency Hx of fracture of wrist History of kidney stones Skin lesion left denominational Cyst mid back HTN (hypertension) Medical History Comments:: vomitting or emotional. Mother has issues with anesthesia Surgical History Surgical History (Updated 01/14/24 @ 06:42 by Janett Johnson) H/O wisdom tooth extraction H/O colonoscopy Hx of tonsillectomy Hx of cystoscopy History of lithotripsy Tobacco Smoking/Tobacco Use Status: Never Alcohol Alcohol Intake: current Alcohol intake frequency: a few times a month Alcohol type: beer, hard liquor and other Substance Use Substance use type: does not use Details: t-5, 12 ounces Vital Signs and Lab Results Vital Signs Most Recent Vital Signs in EMR: Most Recent Vital Signs Temp Pulse Resp BP Pulse Ox 37.2 C 91 H 20 195/104 H 99 01/14/24 06:26 01/14/24 06:26 01/14/24 06:26 01/14/24 06:26 01/14/24 06:26 Lab Results Blood Type / Crossmatch: No Data to Display Complete Blood Count: White Blood Count 6.18 10^3/uL (4.4-10.8) 12/29/23 15:43 Red Blood Count 4.15 10^6/uL (3.93-5.22) 12/29/23 15:43 Hemoglobin 12.7 g/dL (11.2-15.7) 12/29/23 15:43 Hematocrit 36.5 % (36.0-46.0) 12/29/23 15:43 Platelet Count 130 10^3/uL (130-400) 12/29/23 15:43 Complete Metabolic Panel: Sodium 143 mmol/L (136-145) 12/29/23 15:43 Potassium 3.6 mmol/L (3.5-5.1) 12/29/23 15:43 Chloride 105 mmol/L (98-107) 12/29/23 15:43 Carbon Dioxide 26.7 mmol/L (21.0-32.0) 12/29/23 15:43 BUN 22 mg/dL (7-18) H 12/29/23 15:43 Creatinine 0.7 mg/dL (0.55-1.02) 12/29/23 15:43 Est GFR (CKD-EPI 2020) 95.92 (mL/min/1.73m2) 12/29/23 15:43 Calcium 8.8 mg/dL (8.5-10.1) 12/29/23 15:43 Glucose 93 mg/dL (74-106) 12/29/23 15:43 Liver Function Panel: No Data to Display Coagulation Panel: No Data to Display Cardiac Panel: No Data to Display Arterial Blood Gas: No Data to Display Venous Blood Gas: No Data to Display Pancreas Panel: No Data to Display Thyroid Panel: No Data to Display Infectious Disease: No Data to Display Blood Cultures: No Data to Display Toxicology Panel: No Data to Display Imaging and Studies Imaging and Studies Study information below may be from another EMR and interpreted by another provider. Please see original notes in EMR for more complete details. Carotid Artery Summary:: IMPRESSION: No evidence for hemodynamically significant carotid stenosis. Minimal plaque. 09/25/23 Anesthesia Assessment and Plan Anesthesia History Personal History: No History of Anesthesia Complications Family History: No Family History of Anesthesia Complications Exercise Tolerance Exercise Tolerance: Metabolic Equivalents>4 Pertinent Negatives Pertinent Negatives: No Symptoms of GERD (only with fatty, fried foods), No Ladonna r Cardiovascular Symptoms or Complaints, No Major Pulmonary Symptoms or Complaints and No History of CVA/TIA Cardiac & Pulmonary Exam Cardiac Exam: Normal S1/S2 Heart Sounds Pulmonary Exam: Clear Bilateral Breath Sounds Implantable Cardiac Device Does patient have a Pacemaker or an ICD?: No Airway Exam Known Difficult Airway: No Mallampati Class: 2 Mouth Opening: Normal (> 3cm) Thyromental Distance: Greater than 3 cm Neck Range of Motion: Full ROM Neck Circumference: Normal Teeth Condition: Normal Dentition ASA Classification ASA Score: ASA 2 Emergency Case?: No NPO Status NPO Status: NPO Clears >2 hours, Solids >8 hours Anesthesia Plan Resuscitation Status: Full Code Anesthesia Technique: Spinal Anesthesia Airway Planned: Natural Airway Monitors Used: Standard Monitors Preoperative Comments:: Very anxious regarding spinal, plan Versed and patient reassured.
[2024-01-14] MEDS: Lactated Ringers 1,000 ML 80 ML IV (07:05)
--- NOTE | 2024-01-14 07:12 | W.PM.DSUDISC ---
Date of service: 01/14/24 Time of Service: 07:13 Discharge Plan Disposition Patient Disposition: Home Condition: Good Discharge Details Reason For Visit: L THR Attending Provider: Shaheen Lara Primary Care Provider: Brenda Naqvi Home Meds and New Rx's Prescriptions: New acetaminophen 500 mg tablet 1,000 mg PO TID Qty: 90 3RF aspirin 81 mg tablet,delayed release (DR/EC) 81 mg PO BID Qty: 60 0RF celecoxib 200 mg capsule 200 mg PO BID Qty: 60 0RF pantoprazole 40 mg tablet,delayed release (DR/EC) 40 mg PO DAILY Qty: 30 0RF dexamethasone 4 mg tablet 4 mg PO DAILY Qty: 2 0RF oxycodone 5 mg tablet 5 mg PO Q4H MDD 6 tabs PRN (Reason: pain) Qty: 20 0RF tramadol 50 mg tablet 50 mg PO Q4H PRNQty: 12 0RF Continued lisinopril 10 mg tablet 40 mg PO DAILY propranolol 40 mg tablet 40 mg PO DAILY PRN (Reason: anxiety) rosuvastatin 5 mg tablet 5 mg PO DAILY multivitamin [Daily Multi-Vitamin] Tablet 1 tab PO DAILY tumeric Calcium 600 with Vitamin D3 600 mg-10 mcg (400 unit) tablet,chewable 1 tab PO DAILY Discharge Instructions Additional Instructions: Total Hip Discharge Instructions Activity: The most important activity is to walk. You should try to take short walks a few times a day. You have no restrictions on movement or positioning, but do not try to force what you do. You will find some stiffness and weakness with hip flexion (lifting your knee). Do not try to strengthen this too early, continue to practice walking and stairs and this will come. - Outpatient physical therapy can be helpful to help return you to a normal gait and improve your flexibility and strength. This can start around 2 weeks. For some patients, it?s not necessary. Usually this is determined at the time of discharge or at the first post-operative visit. - You should wear the MIKE hose on both legs for 2 weeks. Dressing: Keep the surgical dressing in place for at least one week. After the first week it may be removed and replace with light gauze and tape or nothing. It may get wet after 3 days but avoid soaking the dressing. If it gets wet, just lightly pat dry. It is important to always keep some gauze between skin folds, especially when you are sitting. Spend some time with the wound exposed when you are lying flat as the incision does wrinkle onto itself. Medications: - You should take Tylenol and an anti-inflammatory Celebrex as your primary pain control medications. If the Celebrex is too expensive or not covered, please call the office for another alternative (Advil/Ibuprofen or Naproxen/Aleve). - You have been prescribed a stronger pain medication Oxycodone for breakthrough pain, take as needed as prescribed. - You have also been prescribed a stomach acid reduction agent Pantoprozole to help reduce stomach acid and reflux. - You have also been prescribed Decadron to help with post-operative nausea and pain. You will take this for two days starting tomorrow. - You will be taking Aspirin 81mg twice a day for DVT prevention unless instructed otherwise. - If you have constipation you should take Colace or Miralax (both azos-zry-vwcpors). It takes most people 3-4 days to have a bowel movement. Follow-up: 2 weeks If you have any acute concerns or questions, please do not hesitate to contact the office at [phone]. You may contact Dr. Lara with any questions after hours through the hospital at [phone] or on his cell phone at [phone]. Stand Alone Forms: Anesthesia Discharge Inst., Isabel Ritter ([facility]) Referrals: Shaheen Lara MD [ [facility] STAFF PHYSICIAN] - 01/29/24 11:00 am Equipment/Supplies: Walker Activity:: Activity as Tolerated Shower/Bathe:: 72 hours Diet:: As Tolerated Discharge Orders Discharge Orders: Discharge Order (Routine); Ordered 01/14/24 Ordered By: Shaheen Lara DS: Diagnosis Discharge Diagnosis (1) Arthritis of left hip: Status: Acute
[2024-01-14] MEDS: ceFAZolin 2 GM/50 ML BAG IVPB (07:31)
[2024-01-14] MEDS: TRANEXAMIC ACID/SOD. CHL. 1,000 MG/100 ML BAG 600 MG IVPB (07:42)
--- NOTE | 2024-01-14 08:46 | DI.RAD_ITS ---
Exam(s) XR HIP LT IN OR EXAM: XR HIP LT IN OR CLINICAL HISTORY: left hip arthritis TECHNIQUE: 2D and realtime digital imaging was performed. CONTRAST MATERIAL: Refer to procedure report. COMPARISON: CR XR PELVIS AP from 12/29/2023 FINDINGS: Fluoroscopy was provided for Dr. Lara during the performance of a left total hip replacement. P lease refer to the procedure report for complete details. Ka,r=2.42 mGy IMPRESSION: RADIATION DOSE DELIVERED: 0.0 0.0 0
--- NOTE | 2024-01-14 09:09 | ROE_ITS ---
Date of service: 01/14/24 Time of Service: 07:40 Operative Note Operative Note DATE OF PROCEDURE: 01/14/24 PRE-OP DIAGNOSIS: Left Hip Osteoarthritis POST-OP DIAGNOSIS: same PROCEDURE: Left Anterior Total Hip Arthroplasty with Intraoperative Navigation SURGEON: Shaheen Lara RING FACER: Cameron Asencio ANESTHESIA TYPE: Spinal Refer to Anesthesia Record ESTIMATED BLOOD LOSS: 350 PATHOLOGY: none sent TOURNIQUET TIME: 0 COMPLICATIONS: None Patient was transported to: PACU Patient's condition: stable Implants: 1. Depuy [place] Acetabular Component, 50mm 2. Depuy Acetabular Liner, [id number] 3. Depuy Corail Standard 125 degree Collared Femoral Stem, Size 13 4. Depuy Altrx Ceramic Femoral Head, Size 32+1mm Indications: I have seen Nhi in clinic for symptoms of hip arthritis, confirmed with radiographic findings. She has exhausted nonoperative methods and was having significant limitations in daily function and desired better function and less pain. I discussed the technical details of a hip replacement. I explained the risks of the procedure to include, but not limited to, bleeding, infection, pain, stiffness, fracture, damage to nerves and vessels, damage to muscles and tendons, loosening, instability, leg length inequality, need for repeat procedure, blood clot and cardiopulmonary demise. Despite these risks, Nhi elected to proceed. Findings: There was significant signs of arthritis throughout the hip with deformity of the femoral head and complete loss of cartilage. Procedure Description: Nhi was greeted in the preoperative holding area where the correct side was identified and marked. The consent was reviewed with the patient and signed. The history and physical was updated. All questions were answered. She was taken back to the operating room. A spinal anesthestic was then administered. The feet were wrapped with cast padding and Coban and then placed into the boot liners and then into the boots. Care was taken to protect the skin and make sure the heels were fully down and the boots were stable. The patient was then positioned onto the HANA table. Both legs were held in a neutral position. SCDs were applied. The patient was then slid down onto a peroneal post. Prophylactic antibiotics in the form of Cefazolin were administered. 1g of Tranxemic Acid was given intravenously within 30 minutes of incision. The left leg was then prepped with Chloraprep and draped in a standard fashion. A second prep with Chloraprep was performed prior to placement of a shower-curtain type drape with Iodine impregnated skin protection. A timeout to confirm correct identity, side and site, procedure, allergies, anesthesia, and medical concerns was performed. An obliquely oriented incision was made starting lateral to the ASIS and running distal over the Tensor Fascia Shell (TFL) muscle belly toward the fibular head, approximately 10cm. The skin and soft tissue was dissected sharply, through Tia?s fascia, and to the fascia of the TFL. With the fascia and superior border of the IT band identified, the fascia was incised with a new knife just above any perforators from the IT band. The TFL muscle belly was bluntly dissected away from the fascia and moved laterally. The fat between TFL and rectus was identified to ensure the dissection was not within the TFL. Blunt dissection created space between abductors and the capsule and retractor was placed over the lateral femoral neck. The fibers of the rectus femoris tendon were identified and these were freed from the anterior capsule. A second cobra retractor was placed around the medial femoral neck. The TFL was further retracted laterally to show the deep fascia. Careful dissection through this layer identified three main crossing vessels of the lateral femoral circumflex. These were cauterized in multiple locations and then cut without any noticeable bleeding. The TFL was further released bluntly from the deep fascia to expose anterior hip capsule and fat The Jourdan orthopaedic retractor was then placed beneath the TFL and against sartorius and medial soft tissues to protect and retract the soft tissues. A T-capsulotomy was then performed starting at the superior lateral acetabulum and moving distally to the intertrochanteric ridge. These capsular flaps were tagged with a No. 1 Ethibond and elevated from within. The capsular flaps were released to the shoulder of the lateral neck and to the lesser trochanter to give excellent visualization of the proximal femur. A neck osteotomy was performed using an oscillating saw based on preoperative templates. This cut started in the shoulder and of the lateral neck and exited medially. The saw was at all times directed medially to avoid injury to the greater trochanter. Gross traction was applied to the leg and the osteotomy opened. The femoral head was removed with a corkscrew, making sure to protect the TFL on its exit. Traction was released after head removal. This was measured on the back table to determine the starting reamer size. Portions of the rectus obscuring visualization were minimally elevated off the superior acetabulum. An anterior retractor was placed over the anterior wall between capsule and labrum and attached to the Gripper retraction system. The femur was rotated to 90 degrees and medial capsule was fully released until the lesser trochanter was palpable and visible; the femur was returned to 30 degrees. A posterior retractor was placed similarly between capsule and labrum. This provided excellent visualization. The contents of the cotyloid fossa were removed with electrocautery and the labrum was removed with a knife. There was a notable floor osteophyte. There was significant chondromalacia of the supe rior acetabulum. Acetabular reaming began with a 50mm reamer. This first reaming was directed anterior to posterior and medial to get down to the true floor. This was inspected and reamed until the true floor was reached. The anterior retractor was then released and entry and exit was provided by traction on the capsular flaps. I then reamed sequentially up to a 50mm reamer where good fit was obtained. The larger reamers were oriented based on anatomical reference of the anterior and lateral perry to ensure proper abduction and anteversion. Positioning and size was confirmed with the fluoroscopy. A 50mm Depuy [place] acetabular component was selected. The acetabulum was reamed around the periphery with the selected acetabular size to prevent a rim fit. The deep tissues were irrigated. The acetabular component was then impacted in a position of about 40-45 degrees of abduction and 15-20 degrees of anteversion, using the patient?s anatomy as the ultimate landmark. Fluoroscopy was used to confirm this. There was excellent research associate quality control qc of the acetabular component and the inserting handle was removed. A primary acetabular screw was placed into the ilium by drilling through one of the holes in the acetabular component. This was measured and an approrpriately sized screw was placed with excellent purchase. It was checked not to be proud. A second screw was placed in a similar fashion. The acetabular liner, Depuy [id number] polyethylene liner, was inserted and lined up with the tines of the acetabular component. There was no soft tissue interposition. The liner was then impacted into position and confirmed to be well-seated. A portion of the corrine-articular cocktail was then injected around the acetabulum into the capsule and periosteum. This cocktail consisted of 123mg of Ropivacaine, 0.25mg of Epinephrine, 0.04mg of Clonidine, and 15mg of Ketorolac, diluted to 50cc. The leg was rotated to 120 degrees. Any remaining medial capsule was released until the lesser trochanter was easily palpable. A retractor was placed medially. The lateral capsule was further released into the shoulder to allow access to the greater trochanter. A Levy retractor was placed over the greater trochanter which allowed the trochanter to flip in front of the capsule for excellent exposure. The leg was brought down into maximal extension and 20 degrees of adduction while ensuring there was no impingement on the acetabulum. Any remnant capsule within the trochanter was released. Piriformis and obturator externis were identified and protected. There was excellent access to the proximal femur. The lateral neck remnant was removed with a rongeur. A blunt canal probe was used to identify the canal and trajectory for later broaching. A box osteotome initiated the broach course. A small curved rasp and a curved curette were used to work laterally. Broaching then began with a size 8 Corail broach. This was inserted manually around the trochanter and into the canal before mallet blows. The broach was seated to a few millimeters below the cut level based on the neck cut and the preoperative template. Sequential broaching was continued with the Nutrigreense pneumatic broaching device until a tight fit was obtained with good rotational control of the femur. A trial standard 125 neck was inserted along with a +1 trial head. The leg was brought out of extension and adduction and then reduced with traction and internal rotation. The leg was stable anteriorly in a position of 30 degrees of extension and 90 degrees of external rotation. Fluoroscopy was u sed to ensure there was no fracture and the stem was seated well. Leg lengths were checked with an AP pelvis and pelvic reference points. [employer] navigation system was used to confirm appropriate positioning and leg length and offset. Once content with the desired offset and leg lengths, the leg was brought back into extension, external rotation and adduction. The periosteum and surrounding tissue was injected with remaining portion of the corrine-articular cocktail. The proximal femur was irrigated as well as the deep tissues. The [employer] Corail standard 125 degree collared stem, size 13, was then manually inserted into the proximal femur making sure to control rotation. It was then malleted into position with light blows, giving breaks to allow bone expansion and decrease risk of fracture. The selected Depuy Altrx Ceramic Head, size 32+1mm, was then placed onto the clean and dry trunnion and secured with impaction onto the tapered fit. The leg was brought back out of extension and adduction and reduced with traction and internal rotation. Stability was confirmed with no shuck at 90 degrees of external rotation and 30 degrees of extension. No impingement through range of motion arc. Final x-ray images were obtained with fluoroscopy to confirm adequate positioning and no intraoperative fracture. There had been some consistent oozing throughout the case which seemed to be coming from the femur and stopped with insertion of the implant. The deep tissues were thoroughly irrigated with Surgiphor, betadine solution. This was allowed to sit in the wound for 3 minutes before being thoroughly irrigated out with normal saline. The capsule was then reapproximated with the previously placed Ethibond sutures. The TFL fascia was finally closed with a No. 2 Stratafix, barbed suture. Deep tissues were then reapproximated with 0 Vicryl and a running 2-0 Vicryl. The skin was closed with a running 4-0 Monocryl in a subcuticular fashion. This was reinforced with skin glue. A Mepilex silver dressing was applied. At the end of the case, all counts were correct. Nhi was transferred to the hospital bed without difficulty and suffering no apparent complication. Nhi has a good prognosis. Physical therapy will start today and without restrictions, weight-bearing as tolerated. Aspirin 81mg BID will be used for DVT prophylaxis.
[2024-01-14] MEDS: fentaNYL 100 MCG/2 ML VIAL IVP ×2 (09:26→09:31)
--- NOTE | 2024-01-14 10:37 | W.ANESPOSTOP ---
Postoperative Evaluation Date, Time and Location Date Performed: 01/14/24 Time Performed: 10:28 Patient Location: Day Surgery Unit Vital Signs Most Recent Imported Vital Signs: Most Recent Vital Signs Temp Pulse Resp BP Pulse Ox 36.1 C L 69 16 129/66 98 01/14/24 09:52 01/14/24 09:52 01/14/24 09:52 01/14/24 09:52 01/14/24 09:52 Pain Score Most Recent Pain Score: Most Recent Pain Score Pain Level 5 01/14/24 09:52 Assessment Mental Status: Awake (Alert & Oriented to Patient Baseline) Airway and Respiratory Function: Patent airway with normal (patient baseline) respiratory exam Cardiovascular Function: Hemodynamically Stable Hydration Status: Adequately Hydrated Nausea & Vomiting: No Nausea or Vomiting Pain: Pain is tolerable per patient Peripheral Nerve Block: Patient did not receive a nerve block
--- NOTE | 2024-01-14 10:50 | PT.INIE ---
PT Notes Visit Reasons: L THR Physical Therapy Day Surgery Initial Evaluation Date: 01/14/2024 Referring Doctor: DESIRAE Velazco PT Orders: PT CONSULT: S/P Ortho surgery Precautions: WBAT on the left LE with AD. Patient Profile/Admitting Diagnosis: Nhi is a 63-year-old female with degenerative joint disease of the left knee and hip and is status post left anterior total hip arthroplasty on postoperative day 0. PMHX: Medical History Hematuria Anxiety Urgency of urination Basal cell carcinoma Dysuria Urinary frequency Hx of fracture of wrist History of kidney stones Skin lesion left yarsanism Cyst mid back HTN (hypertension) Surgical History Hx of tonsillectomy Hx of cystoscopy History of lithotripsy Social History/Home Situation: Lives with in a private home with 4 steps to enter without rails. There is a flight of steps with one rail to the bedroom of the house. 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 Daughter Citlalli is a PT assistant product manager ad lives 20 minutes away. Equipment Owned/DME: FWW, SPC Subjective: Agreeable to walking and trying out steps. Reported fatigue early before start of session but did great with mobility performance. Anxious about how her low back pain would be but surprised that there is no pain in her spine throughout the walk and strairs activity. Objective: General Observation: Mepilex Ag over surgical incision TDS to be legs and feet. Mental Status: A and O x 4 Pain: Minimal pain in L hip ROM: Right Lower Extremity: Hip flexion WFL. Hip abduction WFL. Knee flexion WFL. Ankle dorsiflexion WFL. Ankle plantarflexion WFL. Left Lower Extremity: Hip flexion WFL. Hip abduction WFL. Knee flexion WFL. Ankle dorsiflexion WFL. Ankle plantarflexion WFL. Strength: Right Lower Extremity: Hip flexors 5/5. Hip abductors 5/5. Knee flexors 5/5. Knee extensors 5/5. Ankle dorsiflexors 5/5. Ankle plantarflexors 5/5. Left Lower Extremity:Hip flexors 4-/5. Hip abductors 4-/5. Knee flexors 4/5. Knee extensors 4-/5. Ankle dorsiflexors 5/5. Ankle plantarflexors 5/5. Sensation: Intact as to pain and light pressure in B LE Bed Mobility/Transfers: Minimal cueing provided for use of B hands as needed for support, movement sequence, AD management, and posture to reduce fall risk and minimize pain report Sit to stand standby assist with FWW Stand to sit standby assist with FWW Bed to chair standby assist with FWW Gait: Patient facilitated safe and correct level surface ambulation covering a distance of 150 feet with minimal verbal cueing provided for correct and safe gait pattern, AD management, and posture. Standby assist provided. Wheelchair follow done by nurse Lindquist for safety. Denied headache, pain, and lightheadedness throughout session. Stairs: Guided patient with safe and correct negotiation of 6 x 4 inch steps and 4 x 6 inch steps holding onto 1 rail with 1 hand and using single-point cane on the other hand with minimal verbal cueing provided for limb sequence, AD management, hand placement, and posture to minimize pain report and reduce fall risk. Balance: Static Sitting: Normal Dynamic Sitting: Normal Static Standing: Fair Dynamic Standing: Fair Special Tests: Mobility Limitations Standardized Measure [facility] AM-PAC 6 clicks Basic Mobility Inpatient Short Form: Raw Score: 24 CMS Score: 0% deficit Informed Consent/Education: Patient instructed in purpose of PT consult. Packet containing ERYN exercise protocol has been given to patient. Education and training on initial set of exercises that can be done at home have been completed with patient. Trained patient with correct performance of exercises below to maximize motor control, joint flexibility, soft tissue extensibility of the R hip musculature to facilitate return to independent functional mobility performance. Access Code: [email or web address] URL: [email or web address] Date: 01/14/2024 Prepared by: Jyotsna Sal Exercises - Gluteal Sets - 1 x daily - 7 x weekly - 1 sets - 10 reps - 5 hold - Supine Heel Slide - 1 x daily - 7 x weekly - 1 sets - 10 reps - 5 hold - Supine Ankle Pumps - 1 x daily - 7 x weekly - 1 sets - 10 reps - 5 hold - Seated March - 1 x daily - 7 x weekly - 1 sets - 10 reps - 5 hold - Seated Long Arc Quad - 1 x daily - 7 x weekly - 1 sets - 10 reps - 5 hold Assessment: Patient requires use of a front wheeled walker for all mobility ADL performance to maximize independence and reduce fall risk. Patient presents with clinical signs and symptoms consistent with current/admitting diagnoses that have resulted to mobility limitations, gait instability, generalized weakness, and impairment of motor control as demonstrated by the following impairment level findings: 1. Decreased strength to R hip major muscle groups 2. Impaired standing balance Impairments are contributing to the following functional limitations: 1. Inability to safely ambulate without assistive device 2. Increase completion time for mobility ADL performance 3. Increased fall risk Patient is assessed as a 58121 moderate complexity based on the following: History: 63-year-old female with impairment level findings, functional limitations, and past medical history as indicated above Examination: Demonstrable impairment in strength, balance, and mobility level with underlying impairments and functional limitations as documented above Presentation: Evolving Decision Makin moderate complexity Goals: N/A. PT evaluation and 1-2 treatment sessions only for functional mobility training using recommended AD and for HEP instruction. Plan of Care/Treatment Plan: N/A. PT evaluation and 1-2 treatment session only for functional mobility training using recommended AD and for HEP instruction. DISCHARGE RECOMMENDATIONS: Home when medically cleared by orthopedic surgeon. Recommend outpatient PT services in order to optimize functional mobility outcomes and facilitate return to independent community ambulation without an assistive device. TREATMENT CODE/TIME: 31409 x 20 minutes for 1 unit, 96660 x 15 minutes for 1 unit (10:50-11:25). Thank you for the opportunity to participate in the care of this patient. Please sign an return this page within 30 days if you agree with the above POC. Thank you! Physician Signature Date Jyotsna Sal PT, DPT, CLT [facility] [place], [place]
[2024-01-14] MEDS: Tranexamic Acid 650 MG TAB 1300 MG PO (11:54)
--- NOTE | 2024-01-14 12:00 | W.PM.DSUDISC ---
Date of service: 01/14/24 Time of Service: 12:02 Discharge Plan Disposition Patient Disposition: Home Condition: Good Discharge Details Reason For Visit: L THR Attending Provider: Shaheen Lara Primary Care Provider: Brenda Naqvi Home Meds and New Rx's Prescriptions: New acetaminophen 500 mg tablet 1,000 mg PO TID Qty: 90 3RF aspirin 81 mg tablet,delayed release (DR/EC) 81 mg PO BID Qty: 60 0RF celecoxib 200 mg capsule 200 mg PO BID Qty: 60 0RF pantoprazole 40 mg tablet,delayed release (DR/EC) 40 mg PO DAILY Qty: 30 0RF dexamethasone 4 mg tablet 4 mg PO DAILY Qty: 2 0RF tramadol 50 mg tablet 50 mg PO Q4H PRNQty: 12 0RF Continued lisinopril 10 mg tablet 40 mg PO DAILY propranolol 40 mg tablet 40 mg PO DAILY PRN (Reason: anxiety) rosuvastatin 5 mg tablet 5 mg PO DAILY multivitamin [Daily Multi-Vitamin] Tablet 1 tab PO DAILY tumeric Calcium 600 with Vitamin D3 600 mg-10 mcg (400 unit) tablet,chewable 1 tab PO DAILY Discharge Instructions Additional Instructions: Total Hip Discharge Instructions Activity: The most important activity is to walk. You should try to take short walks a few times a day. You have no restrictions on movement or positioning, but do not try to force what you do. You will find some stiffness and weakness with hip flexion (lifting your knee). Do not try to strengthen this too early, continue to practice walking and stairs and this will come. - Outpatient physical therapy can be helpful to help return you to a normal gait and improve your flexibility and strength. This can start around 2 weeks. For some patients, it?s not necessary. Usually this is determined at the time of discharge or at the first post-operative visit. - You should wear the MIKE hose on both legs for 2 weeks. Dressing: Keep the surgical dressing in place for at least one week. After the first week it may be removed and replace with light gauze and tape or nothing. It may get wet after 3 days but avoid soaking the dressing. If it gets wet, just lightly pat dry. It is important to always keep some gauze between skin folds, especially when you are sitting. Spend some time with the wound exposed when you are lying flat as the incision does wrinkle onto itself. Medications: - You should take Tylenol and an anti-inflammatory Celebrex as your primary pain control medications. If the Celebrex is too expensive or not covered, please call the office for another alternative (Advil/Ibuprofen or Naproxen/Aleve). - You have been prescribed a stronger pain medication tramadol for breakthrough pain, take as needed as prescribed. - You have also been prescribed a stomach acid reduction agent Pantoprozole to help reduce stomach acid and reflux. - You have also been prescribed Decadron to help with post-operative nausea and pain. You will take this for two days starting tomorrow. - You will be taking Aspirin 81mg twice a day for DVT prevention unless instructed otherwise. - If you have constipation you should take Colace or Miralax (both [id number]). It takes most people 3-4 days to have a bowel movement. Follow-up: 2 weeks If you have any acute concerns or questions, please do not hesitate to contact the office at [phone]. You may contact Dr. Lara with any questions after hours through the hospital at [phone] or on his cell phone at [phone]. Stand Alone Forms: Anesthesia Discharge Inst., Isabel Ritter ([facility]) Referrals: Shaheen Lara MD [ [facility] STAFF PHYSICIAN] - 01/29/24 11:00 am Equipment/Supplies: Walker Activity:: Activity as Tolerated Shower/Bathe:: 72 hours Diet:: As Tolerated Discharge Orders Discharge Orders: Discharge Order (Routine); Ordered 01/14/24 Ordered By: Shaheen Lara DS: Diagnosis Discharge Diagnosis (1) Arthritis of left hip: Status: Acute
== END 2024-01-14 12:50 | disposition home or self-care (01) ==
LOC: SUR 13:19
PROVIDERS: PCP Nurse Practitioner Family; Visit Provider Student in an Organized Health Care Education/Training Program
PROC: (CPT 27130; principal; 2024-01-14 07:30)
DX: M16.12 Unilateral primary osteoarthritis, left hip (principal); I10 Essential (primary) hypertension; F41.9 Anxiety disorder, unspecified
CPT/HCPCS: 27130; 20985; 97162; 97530; 73501; C1776; J0690; J1100; J2001; J2250; J2371; J2401; J2405; J2704; J3010

== ENCOUNTER 2024-01-29 15:01 | Outpatient (CLI) | payer BC, SELFPAY ==
--- NOTE | 2024-01-29 11:08 | DI.RAD_ITS ---
Exam(s) XR HIP LT COMPLETE AP PELVIS EXAM: XR HIP LT COMPLETE AP PELVIS CLINICAL HISTORY: 1st post op S/P L ERYN. TECHNIQUE: 2D digital imaging was performed. Two images were obtained. AP, lateral and oblique view s were obtained. COMPARISON: CR XR PELVIS AP from 12/29/2023 XA XR HIP LT IN OR from 01/14/2024 FINDINGS: BONES: There are stable post operative changes of a left total hip replacement present. No fracture or dislocation. JOINTS: The orthopedic hardware is in good position. No evidence of hardware loosening. Moderate de generative changes are seen in the right hip characterized by joint space narrowing and osteophytes. SOFT TISSUE: Normal. IMPRESSION: Stable left total hip replacement. DATA REPOSITORY: RADIATION DOSE DELIVERED:
== END 2024-01-29 15:02 | disposition home or self-care (01) ==
LOC: DIORS 15:01
PROVIDERS: PCP Nurse Practitioner Family; Visit Provider Physician Assistant
DX: Z96.642 Presence of left artificial hip joint (principal); Z47.1 Aftercare following joint replacement surgery
CPT/HCPCS: 73502

== ENCOUNTER 2024-03-31 23:59 | Outpatient (REF) | payer BC, SELFPAY | END 2024-04-01 | disposition home or self-care (01) | LOC: LBN 23:59 | PROVIDERS: PCP Nurse Practitioner Family; Visit Provider Emergency Medicine Emergency Medical Services | DX: R30.0 Dysuria (principal) | CPT/HCPCS: 87077; 87086; 87186 ==

== ENCOUNTER 2024-10-29 08:52 | Outpatient (CLI) | payer BC, SELFPAY ==
[2024-10-29 08:45] LABS: Abs Immature Grans 0.01 10^3/uL (0.0-0.06); Absolute Basophil Count 0.03 10^3/uL (0.0-0.2); Absolute Eosinophil Count 0.14 10^3/uL (0.0-0.7); Absolute Lymphocyte Count 1.04 10^3/uL (1.2-3.4); Absolute Monocyte Count 0.39 10^3/uL (0.1-0.8); Absolute Neutrophil Count 2.78 10^3/uL (1.2-6.7); Basophils % 0.7 %; Eosinophils % 3.2 %; HCT 37.2 % (36.0-46.0); Immature Grans % 0.2 %; Lymphocytes % 23.7 %; MCH 30.4 pg (27.0-33.0); MCHC 34.9 % (32.0-36.0); MCV 87 fL (80-95); MPV 10.9 fL (8.0-11.0); Monocytes % 8.9 %; Neutrophils % 63.3 %; RBC 4.27 10^6/uL (3.93-5.22); RDW 11.6 % (11.7-14.6); RDW-SD 37.1 fL; WBC 4.39 10^3/uL (4.4-10.8)
[2024-10-29 09:03] LABS: Platelet Count 87 10^3/uL (130-400)
[2024-10-29 09:21] LABS: ALT 19 U/L (14-59); AST 18 U/L (15-37); Alkaline Phosphatase 72 U/L (46-116); Anion Gap 6.1 mmol/L (3-11); BUN 15 mg/dL (7-18); Bilirubin, Total 0.6 mg/dL (0.2-1.0); CO2 29.9 mmol/L (21.0-32.0); CREATININE 0.7 mg/dL (0.55-1.02); Calcium 9.1 mg/dL (8.5-10.1); Calculated LDL 62 mg/dL (<100); Chloride 108 mmol/L (98-107); Cholesterol 157 mg/dL (<200); Estimated GFR 95.32 (mL/min/1.73m2); Glucose 95 mg/dL (74-106); HDL Cholesterol 64 mg/dL (>or=50); Potassium 3.7 mmol/L (3.5-5.1); Sodium 144 mmol/L (136-145); Total Protein 7.1 g/dL (6.4-8.2); Triglyceride 156 mg/dL (<150)
[2024-10-29 09:49] LABS: COMMENT (LAB VIEW ONLY) 78.18 mg/dL; Microalb ug/mg Crea 59.5 ug/mg Cr
== END 2024-10-29 08:53 | disposition home or self-care (01) ==
LOC: LBO 08:52
PROVIDERS: PCP Nurse Practitioner Family; Visit Provider Nurse Practitioner Family
DX: E78.5 Hyperlipidemia, unspecified (principal); D69.3 Immune thrombocytopenic purpura; R31.9 Hematuria, unspecified; I10 Essential (primary) hypertension
CPT/HCPCS: 36415; 80053; 80061; 82043; 82570; 85025

== ENCOUNTER 2024-11-15 15:34 | Outpatient (CLI) | payer BC, SELFPAY ==
--- NOTE | 2024-11-15 15:30 | DI.RAD_ITS ---
Exam(s) XR HIP RT COMPLETE AP PELVIS EXAM: XR HIP RT COMPLETE AP PELVIS CLINICAL HISTORY: OA R HIP. TECHNIQUE: 2D digital imaging was performed of the right hip. Two images were obtained. AP pelvis a nd lateral right hip views were obtained. COMPARISON: CR XR HIP LT COMPLETE AP PELVIS from 01/29/2024 FINDINGS: BONES: No acute fracture is present. No bony destructive lesion is seen. JOINTS: No dislocation present. There is a left total hip arthroplasty again seen. It appears stable on the single image. There are degenerative changes seen in the right hip characterized by joint sp rosario narrowing and osteophytes. There is a well corticated osseous density adjacent to the lateral as pect of the superior right acetabulum. This is chronic. SOFT TISSUE: Normal. IMPRESSION: Moderate degenerative changes seen in the right hip. DATA REPOSITORY: RADIATION DOSE DELIVERED:
== END 2024-11-15 15:35 | disposition home or self-care (01) ==
LOC: DIORS 15:34
PROVIDERS: PCP Nurse Practitioner Family; Visit Provider Student in an Organized Health Care Education/Training Program
DX: M16.11 Unilateral primary osteoarthritis, right hip (principal)
CPT/HCPCS: 73502

== ENCOUNTER 2024-12-28 02:44 | Outpatient (CLI) | payer BC, SELFPAY ==
[2024-12-28 17:06] LABS: Abs Immature Grans 0.02 10^3/uL (0.0-0.06); Absolute Basophil Count 0.04 10^3/uL (0.0-0.2); Absolute Eosinophil Count 0.15 10^3/uL (0.0-0.7); Absolute Lymphocyte Count 1.42 10^3/uL (1.2-3.4); Absolute Monocyte Count 0.48 10^3/uL (0.1-0.8); Absolute Neutrophil Count 3.38 10^3/uL (1.2-6.7); Basophils % 0.7 %; Eosinophils % 2.7 %; HGB 12.8 g/dL (11.2-15.7); Immature Grans % 0.4 %; Lymphocytes % 25.9 %; MCH 30.6 pg (27.0-33.0); MCHC 34.6 % (32.0-36.0); MCV 89 fL (80-95); MPV 11.4 fL (8.0-11.0); Monocytes % 8.7 %; Neutrophils % 61.6 %; RBC 4.18 10^6/uL (3.93-5.22); RDW 11.7 % (11.7-14.6); RDW-SD 37.5 fL; WBC 5.49 10^3/uL (4.4-10.8)
[2024-12-28 17:14] LABS: Diff Comment PLT Morph Reviewed; Platelet Count 91 10^3/uL (130-400); RBC Morphology Normal
[2024-12-28 18:38] LABS: ALT 20 U/L (14-59); AST 18 U/L (15-37); Albumin 4.1 g/dL (3.4-5.0); Alkaline Phosphatase 79 U/L (46-116); BUN 24 mg/dL (7-18); Bilirubin, Total 0.3 mg/dL (0.2-1.0); CREATININE 0.6 mg/dL (0.55-1.02); Calcium 9.1 mg/dL (8.5-10.1); Chloride 103 mmol/L (98-107); Estimated GFR 98.93 (mL/min/1.73m2); Glucose 114 mg/dL (74-106); Potassium 3.5 mmol/L (3.5-5.1); Sodium 140 mmol/L (136-145); Total Protein 6.8 g/dL (6.4-8.2)
== END 2024-12-28 02:45 | disposition home or self-care (01) ==
LOC: LBO 02:44
PROVIDERS: PCP Nurse Practitioner Family; Visit Provider Internal Medicine
DX: D69.6 Thrombocytopenia, unspecified (principal); D69.3 Immune thrombocytopenic purpura
CPT/HCPCS: 36415; 80053; 85025

== ENCOUNTER 2025-01-13 15:02 | Outpatient (CLI) | payer BC, SELFPAY ==
--- NOTE | 2025-01-13 14:45 | DI.RAD_ITS ---
Exam(s) XR HIP LT AP LAT ONLY EXAM: XR HIP LT AP LAT ONLY CLINICAL HISTORY: ANNUAL F/U L ERYN. TECHNIQUE: 2D digital imaging was performed. COMPARISON: CR XR HIP RT COMPLETE AP PELVIS from 11/15/2024 FINDINGS: Two views There is stable position alignment of the components of the left hip prosthesis. No fracture or loos ening evident. No radiographic evidence of osteomyelitis IMPRESSION: Stable satisfactory appearance of the left hip prosthesis. DATA REPOSITORY: RADIATION DOSE DELIVERED:
== END 2025-01-13 15:03 | disposition home or self-care (01) ==
LOC: DIORS 15:02
PROVIDERS: PCP Nurse Practitioner Family; Referring Provider Nurse Practitioner Family; Visit Provider Student in an Organized Health Care Education/Training Program
DX: Z96.642 Presence of left artificial hip joint (principal)
CPT/HCPCS: 73502

== ENCOUNTER 2025-01-25 01:46 | Outpatient (CLI) | payer BC, SELFPAY ==
--- NOTE | 2025-01-25 | DI.DEXA_ITS ---
Exam(s) XR DEXA BONE DENSITY W/WO SMITHA EXAM: XR DEXA BONE DENSITY W/WO SMITHA CLINICAL HISTORY: Menopausal and female climacteric states, N95.1 TECHNIQUE: Hologic Horizon C densitometer analysis of right hip, lumbar spine and right forearm. Lateral survey image of the thoracic and lumbar spine. COMPARISON: CR XR DEXA BONE DENSITY W/WO SMITHA from 06/13/2021 FINDINGS: Lateral view of the thoracic and lumbar spine shows no evidence of compression fractures. Bone mineral density measurements of the lumbar spine correspond to a total T- score of -1.7, in the osteopenic range. This is not significantly changed from the prior exam. Bone mineral density measurements of the right hip correspond to a total T-score of -1.8, in the osteopenic range. The femoral neck T-score is -0.7. The left hip was analyzed on the prior exam. Theright forearm bone mineral density measurements correspond to a T-score of the distal 3rd of -3.7, in the osteoporotic range. The left forearm was analyzed on the prior exam. IMPRESSION: Osteoporosis of the forearm. Osteopenia of the spine and hip.
== END 2025-01-25 02:06 ==
LOC: DI 01:47
PROVIDERS: PCP Nurse Practitioner Family; Visit Provider Nurse Practitioner Family
DX: N95.1 Menopausal and female climacteric states (principal); M81.0 Age-related osteoporosis without current pathological fracture
CPT/HCPCS: 77080

== ENCOUNTER 2025-06-14 08:26 | Day surgery (SDC) | payer MEDICARE, SELFPAY ==
--- NOTE | 2025-06-13 18:44 | W.ANESPRE ---
General Info Date of Service Date Performed: 06/14/25 Height: 5 ft 3 in Weight: 63.957 kg Body Mass Index (BMI): 25.0 Surgical Procedure: Operation Date: 06/14/25 11:05 Proposed Procedure Side Surgeon p Hip Total Hip Anterior, Corail Right Shaheen Lara MD Meds Allergies and Home Medications Allergies Allergy/AdvReac Type Severity Reaction Status Date / Time Sulfa (Sulfonamide Allergy Severe Other (See Verified 06/14/25 08:53 Antibiotics) Comment) acetaminophen (From Vicodin) Allergy Unknown Other (See Verified 06/13/25 10:31 Comment) hydrocodone (From Vicodin) Allergy Unknown Other (See Verified 06/14/25 08:53 Comment) tramadol AdvReac Mild Nausea Verified 06/14/25 08:53 Home Medication Medication Instructions Recorded lisinopril 10 mg tablet 40 mg PO DAILY 01/18/19 propranolol 40 mg tablet 40 mg PO DAILY PRN anxiety 01/31/21 rosuvastatin 5 mg tablet 5 mg PO DAILY 08/20/23 calcium 600 mg (as carbonate)-vit 1 tab PO DAILY 10/16/23 D3 10 mcg (400 unit) chewable tablet (Calcium 600 with Vitamin D3) multivitamin (Daily Multi-Vitamin 1 tab PO DAILY 10/16/23 tablet) cranberry 500 mg capsule 1,000 mg PO TID 06/03/25 acetaminophen 500 mg tablet 1,000 mg (2 x 500 mg) PO Q8H PRN 06/14/25 pain #90 tabs aspirin 81 mg tablet,delayed 81 mg PO BID 30 days #60 tabs 06/14/25 release [id number]-[id number]-rbpdpatt 250 1 tab PO ONCE 06/14/25 mg-250 mg-65 mg tablet (Excedrin Extra Strength) celecoxib 200 mg capsule (Celebrex) 200 mg PO BID PRN #60 caps 06/14/25 dexamethasone 4 mg tablet 4 mg PO DAILY #2 tabs 06/14/25 docusate sodium 100 mg capsule 100 mg PO BID #28 caps 06/14/25 (Colace) hydromorphone 2 mg tablet 2 mg PO Q6H PRN #4 tabs 06/14/25 pantoprazole 40 mg tablet,delayed 40 mg PO DAILY #14 tabs 06/14/25 release Current Visit Medications: Current Medications Generic Name Dose Route Start Last Admin Trade Name Freq PRN Reason Stop Dose Admin Acetaminophen 1,000 mg 06/14/25 06:00 Acetaminophen 500 Mg Tab PO 06/14/25 23:59 PREOP CLEMENTE Celecoxib 400 mg 06/14/25 06:00 Celecoxib 200 Mg Cap PO 06/14/25 23:59 PREOP CLEMENTE Ringer's Solution 1,000 mls @ 80 mls/hr 06/14/25 06:00 IV 06/14/25 23:59 INFUSION CLEMENTE Cefazolin Sodium/Dextrose 2 gm in 50 mls @ 100 mls/hr 06/14/25 06:00 Ancef Duplex IVPB 06/14/25 23:59 PREOP CLEMENTE Tranexamic Acid/Sodium Chloride 1,000 mg in 100 mls @ 600 mls/hr 06/14/25 06:00 IVPB 06/14/25 23:59 PREOP CLEMENTE IV Miscellaneous Supplies 1 each 06/14/25 06:00 Iv Access IV 06/14/25 23:59 DIRECTED CLEMENTE Sodium Chloride 0 ml 06/14/25 06:00 Normal Saline Flush 10 Ml Syr IV 06/14/25 23:59 PRN PRN Sodium Chloride 0 ml 06/14/25 06:00 Normal Saline 10 Ml Vial IJ 06/14/25 23:59 DIRECTED PRN Sterile Water 0 ml 06/14/25 06:00 Water,Injection,Sterile 10 Ml Vial IJ 06/14/25 23:59 DIRECTED PRN PFSH Active Problems Active Problems: Problem Status Onset Code History of total left hip arthroplasty Acute 01/14/24 Z96.642 Cystocele with uterine prolapse Acute N81.4 Ambrose-Walker grade 1 cystocele Acute N81.10 Arthritis of right hip Chronic M16.11 Epistaxis Acute R04.0 S/P colonoscopy Acute ~02/01/19 Z98.890 Medical History Medical History (Updated 06/14/25 @ 08:51 by Bree Akins RN) Hematuria Anxiety Urgency of urination Basal cell carcinoma mohs surgery Dysuria Urinary frequency Hx of fracture of wrist History of kidney stones Skin lesion left mandaen Cyst mid back HTN (hypertension) Surgical History Surgical History (Updated 06/14/25 @ 08:51 by Bree Akins RN) History of total left hip replacement H/O wisdom tooth extraction H/O colonoscopy Hx of tonsillectomy Hx of cystoscopy History of lithotripsy Tobacco Smoking/Tobacco Use Status: Never Passive smoking exposure: No Alcohol Alcohol Intake: current Alcohol intake frequency: a few times a month Alcohol type: beer, hard liquor and other Substance Use Substance use: Never Substance use type: does not use Vital Signs and Lab Results Vital Signs Most Recent Vital Signs in EMR: Temp Pulse Resp BP Pulse Ox 36.3 C L 94 H 16 191/97 H 96 06/14/25 09:00 06/14/25 09:00 06/14/25 09:00 06/14/25 09:00 06/14/25 09:00 Imaging and Studies Imaging and Studies Study information below may be from another EMR and interpreted by another provider. Please see original notes in EMR for more complete details. Carotid Artery Summary:: IMPRESSION: No evidence for hemodynamically significant carotid stenosis. Minimal plaque. 09/25/23 Anesthesia Assessment and Plan Anesthesia History Personal History: No History of Anesthesia Complications Family History: No Family History of Anesthesia Complications Exercise Tolerance Exercise Tolerance: Metabolic Equivalents>4 Cardiac & Pulmonary Exam Cardiac Exam: Normal S1/S2 Heart Sounds Pulmonary Exam: Clear Bilateral Breath Sounds Implantable Cardiac Device Does patient have a Pacemaker or an ICD?: No Airway Exam Known Difficult Airway: No Mallampati Class: 2 Mouth Opening: Normal (> 3cm) Thyromental Distance: Greater than 3 cm Neck Range of Motion: Full ROM Neck Circumference: Normal Teeth Condition: Normal Dentition ASA Classification ASA Score: ASA 2 Emergency Case?: No NPO Status NPO Status: NPO Clears >2 hours, Solids >8 hours Anesthesia Plan Resuscitation Status: Full Code Anesthesia Technique: Spinal Anesthesia Airway Planned: Natural Airway Monitors Used: Standard Monitors Preoperative Comments:: 65 yo for ERYN. Sig PMHx: HTN (lisinopril, BP at PCP visit 180/100, note states 130/70 at home), thrombocytopenia (hemo note in system. Plan to check platelets today and reschedule if less than 75), anxiety. Never smoker. Occ EtOH. Carotid US: no sig stenosis. Previous Anes: - ERYN, midaz, prop, phenyl gtt, chloro spinal, no issues. - colo, prop, natural airway, no issues.
[2025-06-14] VITALS (28 sets, daily range): BP systolic 135–191; BP diastolic 64–97; PULSE 63–94; RESP 9–18; TEMP 36.2–36.6; O2SAT 88–99; BMI 25.0
--- NOTE | 2025-06-14 07:12 | PDOC.DSDIS_ITS ---
Date of service: 06/14/25 Discharge Plan Disposition Patient Disposition: Home Condition: Good Discharge Details Reason For Visit: Right hip DJD Attending Provider: Shaheen Lara Primary Care Provider: Brenda Naqvi Home Meds and New Rx's Prescriptions: New acetaminophen 500 mg tablet 1,000 mg PO Q8H PRN Qty: 90 0RF Rx Instructions: Take two tablets up to every 8 hours as needed for pain celecoxib [Celebrex] 200 mg capsule 200 mg PO BID PRNQty: 60 0RF Rx Instructions: Take one tablet twice daily for pain and inflammation aspirin 81 mg tablet,delayed release (DR/EC) 81 mg PO BID 30 Days Qty: 60 0RF docusate sodium [Colace] 100 mg capsule 100 mg PO BID Qty: 28 0RF hydromorphone 2 mg tablet 2 mg PO Q6H PRNQty: 4 0RF Rx Instructions: Take one tablet up to every 6 hours as needed for severe postoperative pain dexamethasone 4 mg tablet 4 mg PO DAILY Qty: 2 0RF Rx Instructions: Take one tablet once daily for two days pantoprazole 40 mg tablet,delayed release (DR/EC) 40 mg PO DAILY Qty: 14 0RF Rx Instructions: Take one tablet once daily Continued lisinopril 10 mg tablet 40 mg PO DAILY cranberry 500 mg capsule 1,000 mg PO TID Rx Instructions: administer with meals propranolol 40 mg tablet 40 mg PO DAILY PRN (Reason: anxiety) rosuvastatin 5 mg tablet 5 mg PO DAILY multivitamin [Daily Multi-Vitamin] Tablet 1 tab PO DAILY Calcium 600 with Vitamin D3 600 mg-10 mcg (400 unit) tablet,chewable 1 tab PO DAILY Discharge Instructions Additional Instructions: Total Hip Discharge Instructions Activity: The most important activity is to walk. You should try to take short walks a few times a day. You have no restrictions on movement or positioning, but do not try to force what you do. You will find some stiffness and weakness with hip flexion (lifting your knee). Do not try to strengthen this too early, continue to practice walking and stairs and this will come. - Outpatient physical therapy can be helpful to help return you to a normal gait and improve your flexibility and strength. This can start around 2 weeks. For some patients, it´s not necessary. Usually this is determined at the time of discharge or at the first post-operative visit. - You should wear the MIKE hose on both legs for 2 weeks. Dressing: Keep the surgical dressing in place for at least one week. After the first week it may be removed and replace with light gauze and tape or nothing. It may get wet after 3 days but avoid soaking the dressing. If it gets wet, just lightly pat dry. It is important to always keep some gauze between skin folds, especially when you are sitting. Spend some time with the wound exposed when you are lying flat as the incision does wrinkle onto itself. Medications: - You should take Tylenol and an anti-inflammatory Celebrex as your primary pain control medications. If the Celebrex is too expensive or not covered, please call the office for another alternative (Advil/Ibuprofen or Naproxen/Aleve). - You have been prescribed a stronger pain medication Hydromorphone for breakthrough pain, take as needed as prescribed. - You have also been prescribed a stomach acid reduction agent Pantoprozole to help reduce stomach acid and reflux. - You have also been prescribed Decadron to help with post-operative nausea and pain. You will take this for two days starting tomorrow. - You will be taking Aspirin 81mg twice a day for DVT prevention unless instructed otherwise. - If you have constipation you should take Colace (which has been prescribed) or Miralax (which is available [id number]). It takes most people 3-4 days to have a bowel movement. Follow-up: 2 weeks If you have any acute concerns or questions, please do not hesitate to contact the office at [phone]. You may contact Dr. Lara with any questions after hours through the hospital at [phone] or on his cell phone at [phone]. Stand Alone Forms: Portal Information Referrals: Shaheen Lara MD [ [facility] STAFF PHYSICIAN, Orthopaedic Surgical] Equipment/Supplies: Walker Activity:: Elevate Remove Dressings/Wound Care:: Do Not Remove Shower/Bathe:: Cover Diet:: As Tolerated Discharge Orders Discharge Orders: Discharge Order (Routine); Ordered 06/14/25 Ordered By: Felisa Katz
[2025-06-14 09:32] LABS: Platelet Count 82 10^3/uL (130-400)
[2025-06-14] MEDS: Acetaminophen 500 MG TAB 1000 MG PO (09:33)
[2025-06-14] MEDS: Celecoxib 200 MG CAP 400 MG PO (09:34)
[2025-06-14] MEDS: Lactated Ringers 1,000 ML 80 ML IV (09:40)
[2025-06-14] MEDS: ceFAZolin 2 GM/50 ML BAG IVPB (10:24)
[2025-06-14] MEDS: TRANEXAMIC ACID/SOD. CHL. 1,000 MG/100 ML BAG 600 MG IVPB (10:28)
[2025-06-14] MEDS: EPINEPHrine 1 MG/ML AMP pres-free (10:48)
[2025-06-14] MEDS: ROPIvacaine 0.2% 200 MG/100 ML BAG (10:48)
[2025-06-14] MEDS: Ketorolac 30 MG/ML VIAL (10:48)
--- NOTE | 2025-06-14 11:30 | DI.RAD_ITS ---
Exam(s) XR HIP RT IN OR EXAM: XR HIP RT IN OR CLINICAL HISTORY: Arthritis of right hip TECHNIQUE: 2D and realtime digital imaging was performed. CONTRAST MATERIAL: Refer to procedure report. COMPARISON: CR XR HIP RT COMPLETE AP PELVIS from 11/15/2024 FINDINGS: Fluoroscopy was provided for Dr. Lara during the performance of a right total hip arthroplasty. Please refer to the procedure report for complete details. Ka,r=3.15 mGy IMPRESSION: RADIATION DOSE DELIVERED: 0.0 0.0 0
--- NOTE | 2025-06-14 11:30 | ROE_ITS ---
Operative Note Operative Note PRE-OP DIAGNOSIS: Right Hip Osteoarthritis POST-OP DIAGNOSIS: same PROCEDURE: Right Anterior Total Hip Arthroplasty with Intraoperative Navigation SURGEON: Shaheen Lara CIDER MAKER: Felisa Katz ANESTHESIA TYPE: Spinal Refer to Anesthesia Record ESTIMATED BLOOD LOSS: 100 PATHOLOGY: none sent TOURNIQUET TIME: 0 COMPLICATIONS: None Patient was transported to: PACU Patient's condition: stable Implants: 1. Depuy Emphasys Acetabular Component, 50mm 2. Depuy Acetabular Liner, [id number] 3. Depuy Corail Short Neck 135 Degree Collared Femoral Stem, Size 12 4. Depuy Altrx Ceramic Femoral Head, Size 36+5mm Indications: I have seen Nhi in clinic for symptoms of hip arthritis, confirmed with radiographic findings. Nhi has exhausted nonoperative methods and was having significant limitations in daily function and desired better function and less pain. I discussed the technical details of a hip replacement. I explained the risks of the procedure to include, but not limited to, bleeding, infection, pain, stiffness, fracture, damage to nerves and vessels, damage to muscles and tendons, loosening, instability, leg length inequality, need for repeat procedure, blood clot and cardiopulmonary demise. Despite these risks, she elected to proceed. Findings: There was significant signs of arthritis throughout the hip along with notable synovitis. Procedure Description: Nhi was greeted in the preoperative holding area where the correct side was identified and marked. The consent was reviewed with the patient and signed. The history and physical was updated. All questions were answered. She was taken back to the operating room. A spinal anesthestic was then administered. The feet were wrapped with cast padding and Coban and then placed into the boot liners and then into the boots. Care was taken to protect the skin and make sure the heels were fully down and the boots were stable. The patient was then positioned onto the HANA table. Both legs were held in a neut ral position. SCDs were applied. The patient was then slid down onto a peroneal post. Prophylactic antibiotics in the form of Cefazolin were administered. 1g of Tranxemic Acid was given intravenously within 30 minutes of incision. The right leg was then prepped with Chloraprep and draped in a standard fashion. A second prep with Chloraprep was performed prior to placement of a shower-curtain type drape with Iodine impregnated skin protection. A timeout to confirm correct identity, side and site, procedure, allergies, anesthesia, and medical concerns was performed. An obliquely oriented incision was made starting lateral to the ASIS and running distal over the Tensor Fascia Shell (TFL) muscle belly toward the fibular head, approximately 10cm. The skin and soft tissue was dissected sharply, through Tia´s fascia, and to the fascia of the TFL. With the fascia and superior border of the IT band identified, the fascia was incised with a new knife just above any perforators from the IT band. The TFL muscle belly was bluntly dissected away from the fascia and moved laterally. The fat between TFL and rectus was identified to ensure the dissection was not within the TFL. Blunt dissection created space between abductors and the capsule and retractor was placed over the lateral femoral neck. The fibers of the rectus femoris tendon were identified and these were freed from the anterior capsule. A second cobra retractor was placed around the medial femoral neck. The TFL was further retracted laterally to show the deep fascia. Careful dissection through this layer identified three main crossing vessels of the lateral femoral circumflex. These were cauterized in multiple locations and then cut without any noticeable bleeding. The TFL was further released bluntly from the deep fascia to expose anterior hip capsule and fat The soft tissue orthopaedic retractor was then placed beneath the TFL and against sartorius and medial soft tissues to protect and retract the soft tissues. A T-capsulotomy was then performed starting at the superior lateral acetabulum and moving distally to the intertrochanteric ridge. These capsular flaps were tagged with a No. 1 Vicryl and elevated from within. The capsular flaps were released to the shoulder of the lateral neck and to the lesser trochanter to give excellent visualization of the proximal femur. A neck osteotomy was performed using an oscillating saw based on preoperative templates. This cut started in the shoulder and of the lateral neck and exited medially. The saw was at all times directed medially to avoid injury to the greater trochanter. Gross traction was applied to the leg and the osteotomy opened. The femoral head was removed with a corkscrew, making sure to protect the TFL on its exit. Traction was released after head removal. This was measured on the back table to determine the starting reamer size. Portions of the rectus obscuring visualization were minimally elevated off the superior acetabulum. An anterior retractor was placed over the anterior wall between capsule and labrum and attached to the Gripper retraction system. The femur was rotated to 90 degrees and medial capsule was fully released until the lesser trochanter was palpable and visible; the femur was returned to 30 degrees. A posterior retractor was placed similarly between capsule and labrum. This provided excellent visualization. The contents of the cotyloid fossa were removed with electrocautery and the labrum was removed with a knife. There was a notable floor osteophyte. There was significant chondromalacia of the superior acetabulum. Acetabular reaming began with a 44mm reamer. This first reaming was directed anterior to posterior and medial to get down to the true floor. This was ins pected and reamed until the true floor was reached. The anterior retractor was then released and entry and exit was provided by traction on the capsular flaps. I then reamed sequentially up to a 50mm reamer where good fit was obtained. The larger reamers were oriented based on anatomical reference of the anterior and lateral perry to ensure proper abduction and anteversion. Positioning and size was confirmed with the fluoroscopy. A 50mm Depuy Emphasys acetabular component was selected. The acetabulum was reamed around the periphery with the selected acetabular size to prevent a rim fit. The deep tissues were irrigated. The acetabular component was then impacted in a position of about 40-45 degrees of abduction and 15-20 degrees of anteversion, using the patient´s anatomy as the ultimate landmark. Fluoroscopy was used to confirm this. There was excellent workforce advisor of the acetabular component and the inserting handle was removed. The acetabular liner, Depuy [id number] polyethylene liner, was inserted and lined up with the tines of the acetabular component. There was no soft tissue interposition. The liner was then impacted into position and confirmed to be well-seated. A portion of the corrine-articular cocktail was then injected around the acetabulum into the capsule and periosteum. This cocktail consisted of 123mg of Ropivacaine, 0.25mg of Epinephrine, 0.04mg of Clonidine, and 15mg of Ketorolac, diluted to 50cc. The leg was rotated to 120 degrees. Any remaining medial capsule was released until the lesser trochanter was easily palpable. A retractor was placed medi ally. The lateral capsule was further released into the shoulder to allow access to the greater trochanter. A Levy retractor was placed over the greater trochanter which allowed the trochanter to flip in front of the capsule for excellent exposure. The leg was brought down into maximal extension and 20 degrees of adduction while ensuring there was no impingement on the acetabulum. Any remnant capsule within the trochanter was released. Piriformis and obturator externis were identified and protected. There was excellent access to the proximal femur. The lateral neck remnant was removed with a rongeur. A blunt canal probe was used to identify the canal and trajectory for later broaching. A box osteotome initiated the broach course. A small curved rasp and a curved curette were used to work laterally. Broaching then began with a size 8 Corail broach. This was inserted manually around the trochanter and into the canal before mallet blows. The broach was seated to a few millimeters below the cut level based on the neck cut and the preoperative template. Sequential broaching was continued with the Paper.lise pneumatic broaching device until a tight fit was obtained with good rotational control of the femur. A trial standard 125 degree neck was inserted along with a +1.5 trial head. The leg was brought out of extension and adduction and then reduced with traction and internal rotation. The leg was stable anteriorly in a position of 30 degrees of extension and 90 degrees of external rotation. Fluoroscopy was used to ensure there was no fracture and the stem was seated well. Leg lengths were checked with an AP pelvis and pelvic reference points. Guardium navigation system was used to confirm appropriate positioning and leg length and offset. This overcorrected the offset but corrected the leg length appropriately. Therefore I went to a 135 degree short neck option. Once content with the desired offset and leg lengths, the leg was brought back into e xtension, external rotation and adduction. The periosteum and surrounding tissue was injected with remaining portion of the corrine-articular cocktail. The proximal femur was irrigated as well as the deep tissues. The Depuy Corail short neck 135 degree collared stem, size 12, was then manually inserted into the proximal femur making sure to control rotation. It was then malleted into position with light blows, giving breaks to allow bone expansion and decrease risk of fracture. The selected Depuy Altrx Ceramic Head, size 36+5mm, was then placed onto the clean and dry trunnion and secured with impaction onto the tapered fit. The leg was brought back out of extension and adduction and reduced with traction and internal rotation. Stability was confirmed with no shuck at 90 degrees of external rotation and 30 degrees of extension. No impingement through range of motion arc. Final x-ray images were obtained with fluoroscopy to confirm adequate positioning and no intraoperative fracture. The deep tissues were thoroughly irrigated with Surgiphor, betadine solution. This was allowed to sit in the wound for 3 minutes before being thoroughly irrigated out with normal saline. The capsule was then reapproximated with the previously placed sutures and the indirect head of the rectus was inspected and reapproximated with a #1 Vicryl. The TFL fascia was finally closed with a No. 2 Stratafix, barbed suture. Deep tissues were then reapproximated with 0 Vicryl and a running 2-0 Vicryl. The skin was closed with a running 4-0 Monocryl in a subcuticular fashion. This was reinforced with skin glue. A Mepilex silver dressing was applied. At the end of the case, all counts were correct. Nhi was transferred to the hospital bed without difficulty and suffering no apparent complication. She has a good prognosis. Physical therapy will start today and without restrictions, weight-bearing as tolerated. Aspirin 81mg BID will be used for DVT prophylaxis. Date of Procedure: 06/14/25
--- NOTE | 2025-06-14 11:57 | W.ANESPOSTOP ---
Postoperative Evaluation Date, Time and Location Date Performed: 06/14/25 Time Performed: 11:58 Patient Location: PACU Vital Signs Most Recent Imported Vital Signs: Most Recent Vital Signs Temp Pulse Resp BP Pulse Ox 36.3 C L 73 10 L 142/74 H 98 06/14/25 09:00 06/14/25 11:51 06/14/25 11:51 06/14/25 11:51 06/14/25 11:51 Pain Score Most Recent Pain Score: Most Recent Pain Score Pain Level 0 06/14/25 09:00 Assessment Mental Status: Awake (Alert & Oriented to Patient Baseline) Airway and Respiratory Function: Patent airway with normal (patient baseline) respiratory exam Cardiovascular Function: Hemodynamically Stable Hydration Status: Adequately Hydrated Nausea & Vomiting: No Nausea or Vomiting Pain: Pain is tolerable per patient (spinal still waning) Peripheral Nerve Block: Patient did not receive a nerve block
[2025-06-14] MEDS: fentaNYL 100 MCG/2 ML VIAL IVP ×2 (12:04→12:18)
[2025-06-14] MEDS: Tranexamic Acid 650 MG TAB 1300 MG PO (13:17)
--- NOTE | 2025-06-14 14:36 | PT.INIE ---
PT Notes Visit Reasons: Right hip DJD Physical Therapy Day Surgery Initial Evaluation Date: 06/14/2025 Referring Doctor: Felisa Katz NP/Dr. Lara PT Orders: PT CONSULT: Status post Ortho surgery Precautions: WBAT right LE Patient Profile/Admitting Diagnosis: Right Hip Arthroplasty Patient is a 65-year-old female presenting status post elective right ERYN under spinal anesthesia by Dr. Lara on 06/14/2025. Postop uncomplicated. PMHX: Medical History Hematuria Anxiety Urgency of urination Basal cell carcinoma Dysuria Urinary frequency Hx of fracture of wrist History of kidney stones Skin lesion left yazidi Cyst mid back HTN (hypertension) Surgical History Hx of tonsillectomy Hx of cystoscopy History of lithotripsy Social History/Home Situation: Lives with in a private home with 4 steps to enter without rails. There is a flight of steps with one rail to the bedroom of the house. Patient reports her brings the commode up and down the stairs throughout the day depending on what floor she is on. 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 Daughter Citlalli is a PT community program assistant. Pt independent without device ambulation and independent ADLs Equipment Owned/DME: FWW, Cane, commode and Leg lift. Subjective: Pt felt well, she stated that the RN helped her get up and move to the recliner in the room. Pt stated that she retched earlier with the RN. However, the pt was feeling less nauseous with PT. Pt reported they had a left total hip arthroplasty a while ago, but was unable to recall the exercises. Prior to ambulating, pt stated she needed to take a second to remember the movement pattern, because with her previous hip arthroplasty, it was her left side that was affected. Pt stated her daughter is a HOME WEATHERIZING WORKER, and would be able to help her if her is busy. Objective: General Observation: Pt presented sitting in recliner with ice pack on right hip. Pt excelled with the exercises and was able to perform all of them with slight pain and decreased ROM. Mental Status: Alert and oriented x 4, cooperative, able to follow instructions, agreeable to participate in evaluation Pain: Right hip 3/10 with rest and ambulation ROM: Right Upper Extremity: WFL Left Upper Extremity: WFL Right Lower Extremity: WFL knee and ankle, hip flexion ~95 degrees, abduction ~15 degrees Left Lower Extremity: WFL Strength: Right Upper Extremity: 5/5 Left Upper Extremity: 5/5 Right Lower Extremity: grossly 3+/5 Left Lower Extremity: 5/5 Sensation: intact Bed Mobility/Transfers: Sit to stand: Contact guard Stand to sit: independent Bed to chair: Supervised with FWW Gait: Patient ambulated 110 feet with FWW with standby assist step to pattern with reduced step length Stairs: 3 4 steps and 2 6 steps with rails CGA with continuous cues for sequencing step to pattern 3 4 steps and 2 6 steps with rail and cane CGA with continuous cues for sequencing step to pattern Balance: Static Sitting: Normal Dynamic Sitting: Normal Static Standing: Good Dynamic Standing: Fair Special Tests: Mobility Limitations Standardized Measure [facility] AM-PAC 6 clicks Basic Mobility Inpatient Short Form: [] Raw Score: 19 CMS Score: 41.77% deficit Informed Consent/Education: Patient instructed in purpose of PT consult. Packet containing ERYN exercise protocol has been given to patient. Education and training on initial set of exercises that can be done at home have been completed with patient. Assessment: Patient is a 65-year-old female who presents with clinical signs and symptoms consistent with current/admitting diagnoses that have resulted to mobility limitations, gait instability, generalized weakness, and impairment of motor control as demonstrated by the following impairment level findings: 1. Decreased strength to Right hip musculature specifically the quads, hip flexors 2. Impaired dynamic standing balance 3. Limitation of joint range of motion in right hip and knee 4. Pain right hip 5. Impaired functional activity tolerance Impairments are contributing to the following functional limitations: 1. Inability to safely ambulate without assistive device 2. Increase completion time for mobility ADL performance 3. Increased fall risk 4. Decline in ability to perform stairs safely independently Pt performed well today. Pt had limited ROM and strength in their right hip and knee. However, with proper instructions and cueing from the PT pt was able to perform all exercises for their HEP, ambulate a total of 110 feet, and ambulate stairs.PT providing verbal and tactical cueing for proper hand/foot placement to promote safety and increase in function for the patient Pt has a good support system and a household with proper support for the her to thrive during the healing process. Because of these factors, pt prognosis will be good. Patient is assessed as a Low complexity based on the following: History: 65-year-old female with impairment level findings, functional limitations, and past medical history as indicated above Examination: Demonstrable impairment in strength, balance, and mobility level with underlying impairments and functional limitations as documented above Presentation: evolving/stable Decision Making: Low Goals: N/A. PT evaluation and 1-2 treatment sessions only for functional mobility training using recommended AD and for HEP instruction. Plan of Care/Treatment Plan: N/A. PT evaluation and 1-2 treatment session only for functional mobility training using recommended AD and for HEP instruction. DISCHARGE RECOMMENDATIONS: Home with HEP for two weeks prior to follow up appointment with surgeon TREATMENT CODE/TIME: [id number]/2:07pm- 2:27pm Thank you for the opportunity to participate in the care of this patient. Written by Tim Camarillo DPTS Supervised By: Marta Gonzalez PT [facility]
== END 2025-06-14 14:45 | disposition home or self-care (01) ==
LOC: SUR 08:26
PROVIDERS: PCP Nurse Practitioner Family; Visit Provider Student in an Organized Health Care Education/Training Program
PROC: (CPT 27130; principal; 2025-06-14 10:45)
DX: M16.11 Unilateral primary osteoarthritis, right hip (principal); I10 Essential (primary) hypertension
CPT/HCPCS: 20985; 27130; 36415; 97161; 73501; 85049; C1776; J0166; J0690; J1100; J1885; J2250; J2371; J2401; J2405; J2704; J2795; J3010

== ENCOUNTER 2025-06-27 11:06 | Outpatient (CLI) | payer MEDICARE, SELFPAY ==
--- NOTE | 2025-06-27 10:00 | DI.RAD_ITS ---
Exam(s) XR HIP RT COMPLETE AP PELVIS EXAM: XR HIP RT COMPLETE AP PELVIS CLINICAL HISTORY: 1ST POST OP R ERYN. TECHNIQUE: 2D digital imaging was performed. Two views COMPARISON: CR XR HIP LT AP LAT ONLY from 01/13/2025 CR XR DEXA BONE DENSITY W/WO SMITHA from 01/25/2025 XA XR HIP RT IN OR from 06/14/2025 FINDINGS: BONES: No acute fracture is present. No bony destructive lesion is seen. JOINTS: No dislocation present. Stable appearance of bilateral hip prostheses. SOFT TISSUE: Normal. IMPRESSION: Stable appearance of bilateral hip prostheses. DATA REPOSITORY: RADIATION DOSE DELIVERED:
== END 2025-06-27 11:07 | disposition home or self-care (01) ==
LOC: DIORS 11:06
PROVIDERS: PCP Nurse Practitioner Family; Visit Provider Physician Assistant
DX: Z47.1 Aftercare following joint replacement surgery (principal); Z96.641 Presence of right artificial hip joint
CPT/HCPCS: 99024; 73502

== ENCOUNTER 2025-07-13 01:33 | Outpatient (CLI) | payer MEDICARE, SELFPAY ==
[2025-07-13 10:30] LABS: Abs Immature Grans 0.01 10^3/uL (0.0-0.06); HCT 32.1 % (36.0-46.0); HGB 10.9 g/dL (11.2-15.7); Immature Grans % 0.2 %; MCH 30.3 pg (27.0-33.0); MCHC 34.0 % (32.0-36.0); MCV 89 fL (80-95); MPV 10.4 fL (8.0-11.0); Platelet Count 108 10^3/uL (130-400); RBC 3.60 10^6/uL (3.93-5.22); RDW 12.2 % (11.7-14.6); RDW-SD 39.4 fL; WBC 5.41 10^3/uL (4.4-10.8)
== END 2025-07-13 01:34 | disposition home or self-care (01) ==
PROVIDERS: PCP Nurse Practitioner Family; Visit Provider Internal Medicine
DX: D69.6 Thrombocytopenia, unspecified (principal)
CPT/HCPCS: 36415; 85025

== ENCOUNTER 2025-07-15 17:04 | Outpatient (REF) | payer MEDICARE, SELFPAY | END 2025-07-15 17:05 | disposition home or self-care (01) | LOC: LBN 17:04 | PROVIDERS: PCP Nurse Practitioner Family; Visit Provider Physician Assistant Medical | DX: L72.3 Sebaceous cyst (principal); L08.9 Local infection of the skin and subcutaneous tissue, unspecified | CPT/HCPCS: 87070; 87205 ==

== ENCOUNTER → 2025-07-25 11:04 | Outpatient (BNVA) | payer MEDICARE, SELFPAY | PROVIDERS: PCP Nurse Practitioner Family; Referring Provider Nurse Practitioner Family; Visit Provider Physician Assistant | DX: Z47.1 Aftercare following joint replacement surgery (principal); Z96.641 Presence of right artificial hip joint | CPT/HCPCS: 99024 ==